=== PATIENT | female | born 1960 | race African-American/Black ===

== ENCOUNTER 2016-07-22 11:05 | Emergency (ER) ==
[2016-07-22 11:15] VITALS: BP 142/83
--- NOTE | 2016-07-22 12:46 | PROVIDER DOCUMENTATION ---
HPI-EENT General - General Source: patient - History of Present Illness-EENT General Onset/Duration: reports: 1 week ago Timing: reports: still present Associated Symptoms: reports: cough, fever <Starr Sr - Last Filed: 07/22/16 14:12> <Abhijit Morales - Last Filed: 07/22/16 14:17> - General Chief Complaint: Return/Recheck Stated Complaint: CONGESTION Time Seen by Provider: 07/22/16 12:35 Allergies/Adverse Reactions: Patient Allergies Allergy/AdvReac Type Severity Reaction Status Date / Time No Known Allergies Allergy Verified 05/12/15 13:03 Home Medications: Home Medication List Medication Instructions Recorded Confirmed Last Taken Type Duloxetine [Cymbalta] 30 mg PO DAILY 12/06/14 05/12/15 04/14/15 09:00 History 30mg Hydrocodone Bit/Acetaminophen 10 mg PO 4XDAY PRN 12/06/14 05/12/15 04/15/15 09: 00 History [Hydrocodon-Acetaminophn 10-325] 10mg Levothyroxine [Synthroid] 112 meq PO DAILY 12/06/14 05/12/15 04/15/15 09:00 History 112meq Lubiprostone [Amitiza] 24 mcg PO DAILY 12/06/14 05/12/15 04/15/15 09:00 History 24mcg Methocarbamol 750 mg PO DAILY 12/06/14 05/12/15 04/15/15 14:00 History 750mg Pregabalin [Lyrica] 100 mg PO DAILY 12/06/14 05/12/15 04/15/15 09:00 History 100mg Fluticasone/Salmet 250/50 INH 1 puff INH RTBID #30 inhaler 04/21/15 05/12/15 Unknown Rx [Advair 250/50 Diskus] Gentamicin 0.3% Oph Drops 1 drop BOTH EYES BID #1 bottle 04/21/15 05/12/15 Unknown Rx Albuterol Sulfate Inhaler 2 puff INH [id number] #1 inhaler 05/12/15 Unknown Rx [Ventolin Hfa] CefDINIR [Omnicef] 300 mg PO BID #20 capsule 05/12/15 Unknown Rx Celecoxib [Celebrex] 200 mg DAILY 05/12/15 05/12/15 Unknown History Prednisone 10 mg PO BID #12 tablet 05/12/15 Unknown Rx Azithromycin [Zithromax Z-Mack] 250 mg PO DIRECTED #1 pkg 06/24/16 Unknown Rx Methylprednisolone [Medrol Dosepak] 4 mg PO DIRECTED #1 package 06/24/16 Unknown Rx Albuterol Sulfate Inhaler 2 puff INH Q6H PRN PRN #1 inhaler 07/22/16 Unknown Rx [Ventolin Hfa] Amoxicillin 875 mg PO BID #20 tablet 07/22/16 Unknown Rx Guaifenesin/Codeine [Robitussin-AC] 10 ml PO Q4H PRN PRN #8 oz 07/22/16 Unknown Rx - History of Present Illness-EENT General Nature of Presenting Problem: 56 yo F presents to the ER with complaint of CHAN, SOB , fever, cough and nasal congestion x1 week. denies CP and N/V/D. (Starr Sr) Review of Systems - Adult - REVIEW OF SYSTEMS - ADULT Constitutional: reports: fever. denies: chills Eyes: reports: no symptoms reported Ears, Nose, Mouth & Throat: denies: ear pain, throat pain Cardiovascular: denies: chest pain, palpitations Respiratory: reports: cough, shortness of breath, wheezing Gastrointestinal: reports: no symptoms reported Genitourinary: reports: no symptoms reported Musculoskeletal: reports: no symptoms reported Integumentary: reports: no symptoms reported Neurological: reports: headache/migraines. denies: dizziness/vertigo Psychiatric: reports: no symptoms reported Endocrine: reports: no symptoms reported Hematologic/Lymphatic: reports: no symptoms reported Allergic/Immunologic: reports: no symptoms reported All Other Systems: Reviewed and Negative <Starr Sr - Last Filed: 07/22/16 14:12> Past History - Adult - PAST MEDICAL HISTORY-ADULT Review of Records: reports: Nursing Assessment Review, Medications Reviewed Major Childhood Illnesses: reports: denies history Cardiovascular: reports: denies history Respiratory: reports: denies history Gastrointestinal: reports: GERD Obstetrical/Gynecological: reports: denies history Genitourinary: reports: denies history Musculoskeletal: reports: denies history Neurological: reports: denies history Psychiatric: reports: depression Endocrine/Immune: reports: thyroid disorder Other Conditions: reports: denies history Additional History: Chronic back pain; Sepsis; Neuropathy - PRIOR SURGERIES/PROCEDURES Surgical/Procedure History: reports: cholecystectomy - PRIOR HOSPITALIZATIONS Prior Hospitalizations: reports: none - IMMUNIZATION STATUS Childhood Immunizations: See Nurse Assessment Flu Vaccine: See Nurse Assessment - FAMILY HISTORY Family History: reviewed, not pertinent <Starr rS - Last Filed: 07/22/16 14:12> Physical Exam- EENT - Physical Exam EENT Initial Vital Signs Reviewed: Yes General Appearance: appears well, alert Eye Exam: bilateral eye: normal inspection, PERRL, EOMI Ear Exam: bilateral ear: auricle normal, canal normal, TM normal Nasal Exam: dried blood (L nare), sinus tenderness Throat Exam: normal mouth inspection Neck: supple, normal inspection Respiratory: no respiratory distress, decreased breath sounds, wheezing Cardiovascular: normal peripheral pulses, regular rate, rhythm Abdominal Exam: non tender, soft Back Exam: no CVA tenderness, no vertebral tenderness Extremity: normal gait, normal inspection Integumentary: normal color, warm/dry Neurologic: grossly normal, no motor/sensory deficits Psych/Mental Status: normal mood/affect, normal thought content, normal thought process, oriented x 3 <Starr Sr - Last Filed: 07/22/16 14:12> Progress - XRAY 1 XRAY Study: Chest Impression: Normal (NAD, possible COPD, per radiologist) 2 XRAY Study: other (sinuses) Impression: Normal (unremarkable single broderick view of the paranasal sinuses, per radiologist) <Starr Sr - Last Filed: 07/22/16 14:12> <Abhijit Morales - Last Filed: 07/22/16 14:17> - PLAN OF CARE/RESULTS Progress/Plan/Lab Results: Vital Signs Temp Pulse Resp BP Pulse Ox 07/22/16 13:30 99 H 22 96 07/22/16 11:12 99.1 F 102 H 20 142/83 95 No Known Allergies Allergy (Verified 05/12/15 13:03) Duloxetine [Cymbalta] 30 mg PO DAILY 12/06/14 Hydrocodone Bit/Acetaminophen [Hydrocodon-Acetaminophn 10-325] 10 mg PO 4XDAY PRN 12/06/14 Levothyroxine [Synthroid] 112 meq PO DAILY 12/06/14 Lubiprostone [Amitiza] 24 mcg PO DAILY 12/06/14 Methocarbamol 750 mg PO DAILY 12/06/14 Pregabalin [Lyrica] 100 mg PO DAILY 12/06/14 Fluticasone/Salmet 250/50 INH [Advair 250/50 Diskus] 1 puff INH RTBID #30 inhaler 04/21/15 Gentamicin 0.3% Oph Drops 1 drop BOTH EYES BID #1 bottle 04/21/15 Albuterol Sulfate Inhaler [Ventolin Hfa] 2 puff INH [id number] #1 inhaler 05/12/15 CefDINIR [Omnicef] 300 mg PO BID #20 capsule 05/12/15 Celecoxib [Celebrex] 200 mg DAILY 05/12/15 Prednisone 10 mg PO BID #12 tablet 05/12/15 Azithromycin [Zithromax Z-Mack] 250 mg PO DIRECTED #1 pkg 06/24/16 Methylprednisolone [Medrol Dosepak] 4 mg PO DIRECTED #1 package 06/24/16 Laboratory 07/22/16 07/22/16 13:16 11:18 Specimen Type ARTERIAL Sample Site R RADIAL pH 7.41 pCO2 48 H pO2 78 HCO3 28.7 H Base Excess 4.9 H Oxyhemoglobin 93.5 L ABG O2 Sat (Calculated) 15.7 ABG O2 Saturation 97.0 ABG Carboxyhemoglobin 1.80 ABG Methemoglobin 1.8 H Chris Test YES A-a O2 Difference 12.0 Total Hemoglobin 11.9 Lactate 1.90 Blood Gas Modality ROOM AIR FiO2 % 21.0 Influenza A (Rapid) NEGATIVE Influenza B (Rapid) NEGATIVE Orders Category Date Time Status CHEST-2 VIEWS [RAD] Stat Exams 07/22/16 11:16 Draft SINUSES BRODERICK VIEW ONLY [RAD] Stat Exams 07/22/16 11:16 Draft ABG [RESP] Routine Lab 07/22/16 13:[address] Stat Lab 07/22/16 11:18 Completed Albuterol 2.5MG/Ipratrop 0.5MG [Duoneb (A & A)] Med 07/22/16 13:09 Discontinued 3 ml INH NOW ONE Aerosol Treatments Stat Oth 07/22/16 13:09 Completed Peak Flow Stat Oth 07/22/16 13:10 Completed (Starr Sr) Departure - Departure Time of Disposition Order: 14:13 Certified Medical Emergency: Emergent <Starr Sr - Last Filed: 07/22/16 14:12> - Departure Time of Disposition Order: 14:17 Certified Medical Emergency: Emergent <Abhijit Morales - Last Filed: 07/22/16 14:17> - Departure DIAGNOSIS: Bleeding nose Asthmatic bronchitis Qualifiers: Asthma severity: unspecified severity Asthma complication type: uncomplicated Qualified Code(s): J45.909 - Unspecified asthma, uncomplicated Disposition: HOME 01 Condition: Stable Prescriptions: Guaifenesin/Codeine [Robitussin-AC] 10 ml PO Q4H PRN PRN #8 oz PRN Reason: Cough Albuterol Sulfate Inhaler [Ventolin Hfa] 2 puff INH Q6H PRN PRN #1 inhaler PRN Reason: sob Amoxicillin 875 mg PO BID #20 tablet Referrals: Venkatesh Chu MD [Primary Care Provider] - Attestation - Scribe Verification/Attestation Scribe:: Starr Sr Acting as Scribe for:: Abhijit Morales Scribe documention review:: This chart was documented by a scribe and accurately reflects the service the provider performed and the decisions made by the provider. <Starr Sr - Last Filed: 07/22/16 14:12> Physician Attestation
--- NOTE | 2016-07-22 12:46 | Diag Imaging Result Document ---
PROCEDURE NAME: SINUSES RODRIGUEZ VIEW ONLY - 07/22/2016 SINGLE RODRIGUEZ VIEW OF THE PARANASAL SINUSES: COMPARISON: None available. FINDINGS: The paranasal sinuses are grossly clear. No definite air-fluid level is identified. The mastoid air cells are clear. The surrounding bony structures are grossly intact. IMPRESSION: Unremarkable single Rodriguez view of the paranasal sinuses.
--- NOTE | 2016-07-22 12:48 | Diag Imaging Result Document ---
PROCEDURE NAME: CHEST-2 VIEWS - 07/22/2016 PA AND LATERAL RADIOGRAPH OF THE CHEST: COMPARISON: 05/12/2015. FINDINGS: The lung apices appear somewhat hyperlucent suggesting possible COPD, stable. The lungs are clear otherwise. There is no definite pleural fluid collection. Cardiac silhouette and central vasculature are grossly unremarkable. IMPRESSION: Possible COPD. No definite acute pathology.
[2016-07-22] MEDS ORDERED: DUONEB (A & A) INH ONE (13:09)
[2016-07-22 13:41] LABS: BE 4.9 mmoll (-3.0-3.0); BLOOD TYPE ARTERIAL; DRAW SITE R RADIAL; METHB 1.8 % (0.0-1.5); O2(CT) 15.7 mL/dL (15.0-23.0); PCO2(98.6) 48 mmHg (35-45); PO2(98.6) 78 mmHg (60-100); SAMPLE BLOOD; THB 11.9 g/dL (11.5-17.4); pH(98.6) 7.41 (7.35-7.45)
[2016-07-22 13:45] LABS: ALLEN TEST YES; MODALITY ROOM AIR
[2016-07-22] MEDS ORDERED: DEPO-MEDROL IM ONE (14:16)
== END 2016-07-22 14:52 | disposition home or self-care (01) ==
LOC: P.ED 11:05
DX: J45.909 Unspecified asthma, uncomplicated (principal); R04.0 Epistaxis; R51 Headache; R06.02 Shortness of breath; R50.9 Fever, unspecified; R05 Cough; R09.81 Nasal congestion; R06.2 Wheezing; E07.9 Disorder of thyroid, unspecified; F32.9 Major depressive disorder, single episode, unspecified; Z79.899 Other long term (current) drug therapy; Z79.52 Long term (current) use of systemic steroids; Z79.51 Long term (current) use of inhaled steroids
CPT/HCPCS: 70210; 71020; 82805; 87804; 94640; 96372; J1030

== ENCOUNTER 2016-07-25 07:45 | Emergency (ER) ==
[2016-07-25 07:54] VITALS: BP 154/96
[2016-07-25 08:18] LABS: URINE SOURCE CLEAN CATCH
[2016-07-25] MEDS ORDERED: ROCEPHIN IM ONE (08:23)
[2016-07-25] MEDS ORDERED: SOLU-MEDROL IM ONE (08:23)
[2016-07-25] MEDS ORDERED: XYLOCAINE-MPF 1% INJ ONE (08:23)
[2016-07-25 08:34] LABS: UR AMPHETAMINES QUAL NONE DETECTED (NONE DETECT); UR BARBITUATES QUAL NONE DETECTED (NONE DETECT); UR BENZODIAZEPIN QUAL NONE DETECTED (NONE DETECT); UR CANNABINOIDS QUAL NONE DETECTED (NONE DETECT); UR COCAINE QUAL NONE DETECTED (NONE DETECT); UR MDMA QUAL NONE DETECTED (NONE DETECT); UR METHADONE QUAL NONE DETECTED (NONE DETECT); UR METHAMPHETAMINE QUAL NONE DETECTED (NONE DETECT); UR OPIATES QUAL PRESUMPTIVE POSITIVE (NONE DETECT); UR OXYCODONE QUAL NONE DETECTED (NONE DETECT); UR PCP QUAL NONE DETECTED (NONE DETECT); UR TCA QUAL NONE DETECTED (NONE DETECT)
[2016-07-25 08:41] LABS: BILIRUBIN URINE NEGATIVE (NEGATIVE); BLOOD URINE NEGATIVE (NEGATIVE); CLARITY CLEAR (CLEAR); COLOR YELLOW; GLUCOSE URINE NEGATIVE (NEGATIVE); LEUKOCYTES URINE 1+ (NEGATIVE); NITRITE URINE NEGATIVE (NEGATIVE); PH URINE 6.5; PROTEIN URINE TRACE mg/dL (NEGATIVE); UROBILINOGEN URINE NORMAL
[2016-07-25 08:45] LABS: URINE CULTURE PL NEEDED? YES; URINE EPITHELIAL CELLS >10 /HPF (<10)
--- NOTE | 2016-07-25 09:29 | PROVIDER DOCUMENTATION ---
HPI-General Adult - General Chief Complaint: UTI Symptoms Stated Complaint: UTI SX Time Seen by Provider: 07/25/16 08:01 Source: patient Allergies/Adverse Reactions: Patient Allergies Allergy/AdvReac Type Severity Reaction Status Date / Time No Known Allergies Allergy Verified 07/25/16 07:53 Home Medications: Home Medication List Medication Instructions Recorded Confirmed Last Taken Type Duloxetine [Cymbalta] 30 mg PO DAILY 12/06/14 05/12/15 04/14/15 09:00 History 30mg Hydrocodone Bit/Acetaminophen 10 mg PO 4XDAY PRN 12/06/14 05/12/15 04/15/15 09: 00 History [Hydrocodon-Acetaminophn 10-325] 10mg Levothyroxine [Synthroid] 112 meq PO DAILY 12/06/14 05/12/15 04/15/15 09:00 History 112meq Lubiprostone [Amitiza] 24 mcg PO DAILY 12/06/14 05/12/15 04/15/15 09:00 History 24mcg Methocarbamol 750 mg PO DAILY 12/06/14 05/12/15 04/15/15 14:00 History 750mg Pregabalin [Lyrica] 100 mg PO DAILY 12/06/14 05/12/15 04/15/15 09:00 History 100mg Fluticasone/Salmet 250/50 INH 1 puff INH RTBID #30 inhaler 04/21/15 05/12/15 Unknown Rx [Advair 250/50 Diskus] Gentamicin 0.3% Oph Drops 1 drop BOTH EYES BID #1 bottle 04/21/15 05/12/15 Unknown Rx Albuterol Sulfate Inhaler 2 puff INH [id number] #1 inhaler 05/12/15 Unknown Rx [Ventolin Hfa] CefDINIR [Omnicef] 300 mg PO BID #20 capsule 05/12/15 Unknown Rx Celecoxib [Celebrex] 200 mg DAILY 05/12/15 05/12/15 Unknown History Prednisone 10 mg PO BID #12 tablet 05/12/15 Unknown Rx Azithromycin [Zithromax Z-Mack] 250 mg PO DIRECTED #1 pkg 06/24/16 Unknown Rx Methylprednisolone [Medrol Dosepak] 4 mg PO DIRECTED #1 package 06/24/16 Unknown Rx Albuterol Sulfate Inhaler 2 puff INH Q6H PRN PRN #1 inhaler 07/22/16 Unknown Rx [Ventolin Hfa] Amoxicillin 875 mg PO BID #20 tablet 07/22/16 Unknown Rx Fluconazole [Diflucan] 150 mg PO DAILY #3 tablet 07/22/16 Unknown Rx Guaifenesin/Codeine [Robitussin-AC] 10 ml PO Q4H PRN PRN #8 oz 07/22/16 Unknown Rx Levofloxacin [Levaquin] 750 mg PO DAILY #7 tablet 07/25/16 Unknown Rx Methylprednisolone [Medrol Dosepak] 4 mg PO DIRECTED #1 package 07/25/16 Unknown Rx - History of Present Illness -Gen Adult Nature of Presenting Problems: Reports UTI symptoms since yesterday, urgency, and painful urinating. Pt was seen here a couple of days ago for nasal congestion and was taking Amoxi, etc. Not improving. Denies CP/SOB/LOC. No h/o DMII and no other concerns. Location of Pain/Injury: reports: face, abdomen. denies: chest Pain Radiation: reports: no radiation Quality of Pain: reports: aching, cramping Severity: reports: mild Onset/Duration: reports: 24 hours ago Timing: reports: still present Context/Activities at Onset: reports: none Modifying Factors: improves with: nothing Associated Symptoms: reports: cough, fatigue, malaise, vomiting. denies: weakness Similar Symptoms Previously?: Yes Recently seen or treated by another doctor?: Yes Review of Systems - Adult - REVIEW OF SYSTEMS - ADULT Constitutional: reports: see HPI, fatique. denies: fever Eyes: reports: no symptoms reported Ears, Nose, Mouth & Throat: reports: no symptoms reported Cardiovascular: reports: no symptoms reported Respiratory: reports: no symptoms reported Gastrointestinal: reports: no symptoms reported Genitourinary: reports: see HPI, dysuria, frequency, hesitency. denies: flank pain, urinary retention Musculoskeletal: reports: no symptoms reported Integumentary: reports: no symptoms reported Neurological: reports: no symptoms reported All Other Systems: Reviewed and Negative Past History - Adult - PAST MEDICAL HISTORY-ADULT Review of Records: reports: Old Records Reviewed, Nursing Assessment Review, Medications Reviewed, Social history reviewed & non-contributory. Major Childhood Illnesses: reports: denies history Cardiovascular: reports: denies history Respiratory: reports: denies history Gastrointestinal: reports: GERD Obstetrical/Gynecological: reports: denies history Genitourinary: reports: denies history Musculoskeletal: reports: denies history Neurological: reports: denies history Psychiatric: reports: depression Endocrine/Immune: reports: thyroid disorder Other Conditions: reports: denies history Additional History: Chronic back pain; Sepsis; Neuropathy - PRIOR SURGERIES/PROCEDURES Surgical/Procedure History: reports: cholecystectomy - PRIOR HOSPITALIZATIONS Prior Hospitalizations: reports: none - IMMUNIZATION STATUS Childhood Immunizations: See Nurse Assessment Flu Vaccine: See Nurse Assessment - FAMILY HISTORY Family History: reviewed, not pertinent Physical Exam-General - PHYSICAL EXAM-ADULT Initial Vital Signs Reviewed: Yes - CONSTITUTIONAL General Appearance: appears well, alert, no apparent distress - EYES Eyes: PERRL/EOMI, pink conjunctivae, fundi clear, no AV nicking - HEAD, EARS, NOSE, MOUTH & THROAT HENMT: normocephalic/atraumatic, moist mucous membranes, normal ENT inspection - NECK Neck: non-tender, full range of motion, supple, normal inspection - RESPIRATORY Respiratory: chest non-tender, lungs clear, normal breath sounds, no pleuratic chest pain - CARDIOVASCULAR Cardiovascular: normal peripheral pulses, regular rate, rhythm, no edema, no gallop - GASTROINTESTINAL (ABDOMEN) Abdominal Exam: normal bowel sounds, soft, no organomegaly, no pulsatile mass, tenderness (Mild suprapubic tendernes, no gaurding and no rebound.). negative: distended, guarding, rigid, rebound - MUSCULOSKELETAL Back Exam: normal inspection, no CVA tenderness, no vertebral tenderness Extremity: normal range of motion, non-tender, normal gait, normal inspection - SKIN Integumentary: normal color, normal turgor, warm/dry - NEUROLOGIC Neurologic: no motor/sensory deficits - PSYCHIATRIC Psych/Mental Status: normal mood/affect, normal thought content, normal thought process, oriented x 3 Departure - Departure Time of Disposition Order: 09:27 DIAGNOSIS: UTI (urinary tract infection) Qualifiers: Urinary tract infection type: site unspecified Hematuria presence: without hematuria Qualified Code(s): N39.0 - Urinary tract infection, site not specified Sinusitis Qualifiers: Sinusitis location: unspecified location Chronicity: unspecified Qualified Code (s): J32.9 - Chronic sinusitis, unspecified Disposition: HOME 01 Certified Medical Emergency: Emergent Condition: Stable Prescriptions: Levofloxacin [Levaquin] 750 mg PO DAILY #7 tablet Methylprednisolone [Medrol Dosepak] 4 mg PO DIRECTED #1 package Referrals: Venkatesh Chu MD [Primary Care Provider] -
== END 2016-07-25 09:47 | disposition home or self-care (01) ==
LOC: P.ED 07:45
DX: N39.0 Urinary tract infection, site not specified (principal); J32.9 Chronic sinusitis, unspecified; R39.15 Urgency of urination; R30.0 Dysuria; R05 Cough; R53.83 Other fatigue; R53.81 Other malaise; R11.10 Vomiting, unspecified; R35.0 Frequency of micturition; E07.9 Disorder of thyroid, unspecified; F32.9 Major depressive disorder, single episode, unspecified; M54.9 Dorsalgia, unspecified; G89.29 Other chronic pain; G62.9 Polyneuropathy, unspecified; Z86.19 Personal history of other infectious and parasitic diseases; R10.30 Lower abdominal pain, unspecified; Z79.899 Other long term (current) drug therapy; Z79.52 Long term (current) use of systemic steroids; Z79.51 Long term (current) use of inhaled steroids
CPT/HCPCS: 80305; 81001; 87088; 96372; J0696; J2930

== ENCOUNTER 2016-10-14 20:24 | Inpatient (IN) ==
[2016-10-14] MEDS ORDERED: TYLENOL ONE (20:52)
[2016-10-14] MEDS ORDERED: TYLENOL PO ONE (20:59)
[2016-10-14 21:00] LABS: BE 8.9 mmoll (-3.0-3.0); BLOOD TYPE ARTERIAL; DRAW SITE R RADIAL; METHB 1.2 % (0.0-1.5); O2(CT) 11.9 mL/dL (15.0-23.0); SAMPLE BLOOD; SAO2 86.5 % (95.0-100.0); THB 10.1 g/dL (11.5-17.4); pH(98.6) 7.41 (7.35-7.45)
[2016-10-14 21:04] LABS: ALLEN TEST YES; MODALITY CANNULA; PCO2(98.6) 55 mmHg (35-45); PO2(98.6) 46 mmHg (60-100)
[2016-10-14 21:24] LABS: MANUAL DIFF NEEDED? NO
[2016-10-14 21:34] LABS: BASO% 0.2 % (0.0-0.8); EOS# 0.06 X1000 (0.0-0.7); EOS% 1.3 % (0.0-10.0); HEMATOCRIT 29.7 % (37.0-47.0); HEMOGLOBIN 9.7 g/dL (12.0-16.0); IMM GRAN# 0.12 X1000 (0.0-0.04); IMM GRAN% 2.5 % (0.0-0.5); LYMPH# 0.65 X1000 (1.2-3.4); LYMPH% 13.5 % (20.5-51.1); MCH 27.5 PG (27-31); MCHC 32.7 g/dL (33-37); MCV 84.1 FL (81-99); MONO# 0.94 X1000 (0.11-0.59); MONO% 19.6 % (1.7-9.3); MPV 9.4 FL (7.4-10.4); NEUT% 62.9 % (42.2-75.2); PLT 321 X1000 (130-400); RBC 3.53 XMIL (4.2-5.4)
[2016-10-14] MEDS ORDERED: DUONEB (A & A) INH ONE (21:44)
[2016-10-14 21:48] LABS: ALBUMIN 2.7 g/dL (3.5-5.0); CALCIUM 8.2 mg/dL (8.8-10.2); MAGNESIUM 1.1 mg/dL (1.5-2.7); POTASSIUM 4.9 mmol/L (3.5-5.1); TOTAL BILIRUBIN 0.2 mg/dL (0.20-1.00); TOTAL PROTEIN 5.9 g/dL (6.3-8.3)
[2016-10-14] MEDS ORDERED: NS 1,000 ML IV SCH (22:00)
[2016-10-14] MEDS ORDERED: ROCEPHIN 1 GM/NS 1 GM/50 ML IVPB IV ONE (22:16)
[2016-10-14] MEDS ORDERED: NS 1,000 ML IV ONE (22:22)
[2016-10-14] MEDS ORDERED: TYLENOL PO PRN (22:22)
--- NOTE | 2016-10-14 22:22 | PROVIDER DOCUMENTATION ---
This chart was entered by Shola Gallegos Scribe, acting as scribe for Deacon Bhakta PA. HPI-Respiratory General - General Chief Complaint: Shortness of Breath Stated Complaint: CONGESTED Time Seen by Provider: 10/14/16 20:43 Source: patient Allergies/Adverse Reactions: Patient Allergies Allergy/AdvReac Type Severity Reaction Status Date / Time No Known Allergies Allergy Verified 07/25/16 07:53 Home Medications: Home Medication List Medication Instructions Recorded Confirmed Last Taken Type Duloxetine [Cymbalta] 30 mg PO DAILY 12/06/14 10/14/16 04/14/15 09:00 History 30mg Hydrocodone Bit/Acetaminophen 10 mg PO 4XDAY PRN 12/06/14 10/14/16 04/15/15 09: 00 History [Hydrocodon-Acetaminophn 10-325] 10mg Levothyroxine [Synthroid] 112 meq PO DAILY 12/06/14 10/14/16 04/15/15 09:00 History 112meq Lubiprostone [Amitiza] 24 mcg PO DAILY 12/06/14 10/14/16 04/15/15 09:00 History 24mcg Methocarbamol 750 mg PO DAILY 12/06/14 10/14/16 04/15/15 14:00 History 750mg Pregabalin [Lyrica] 100 mg PO DAILY 12/06/14 10/14/16 04/15/15 09:00 History 100mg Fluticasone/Salmet 250/50 INH 1 puff INH RTBID #30 inhaler 04/21/15 10/14/16 Unknown Rx [Advair 250/50 Diskus] Albuterol Sulfate Inhaler 2 puff INH Q6H PRN PRN #1 inhaler 07/22/16 10/14/16 Unknown Rx [Ventolin Hfa] Guaifenesin/Codeine [Robitussin-AC] 10 ml PO Q4H PRN PRN #8 oz 07/22/16 Unknown Rx Methylprednisolone [Medrol Dosepak] 4 mg PO DIRECTED #1 package 07/25/1602/20 Unknown Rx - History of Present Illness-Resp Nature of Presenting Problem: 56 yo F presents to the ER with complaint of SOB and fever since this AM. Pt was admitted at [facility] last week for SOB and COPD exacerbation. PT has lung cancer and COPD. Severity in ED: reports: mild Onset/Duration: reports: this morning Timing: reports: still present Associated Symptoms: reports: fever/chills, shortness of breath Review of Systems - Adult - REVIEW OF SYSTEMS - ADULT Constitutional: reports: fever. denies: chills Cardiovascular: denies: chest pain, palpitations Respiratory: reports: shortness of breath. denies: cough All Other Systems: Reviewed and Negative Past History - Adult - PAST MEDICAL HISTORY-ADULT Review of Records: reports: Old Records Reviewed, Nursing Assessment Review, Medications Reviewed Major Childhood Illnesses: reports: denies history Cardiovascular: reports: denies history Respiratory: reports: denies history Gastrointestinal: reports: GERD Obstetrical/Gynecological: reports: denies history Genitourinary: reports: denies history Musculoskeletal: reports: denies history Neurological: reports: denies history Psychiatric: reports: depression Endocrine/Immune: reports: thyroid disorder Other Conditions: reports: denies history Additional History: Chronic back pain; Sepsis; Neuropathy - PRIOR SURGERIES/PROCEDURES Surgical/Procedure History: reports: cholecystectomy - PRIOR HOSPITALIZATIONS Prior Hospitalizations: reports: none - IMMUNIZATION STATUS Childhood Immunizations: See Nurse Assessment Flu Vaccine: See Nurse Assessment - FAMILY HISTORY Family History: reviewed, not pertinent Physical Exam-General - PHYSICAL EXAM-ADULT Initial Vital Signs Reviewed: Yes - CONSTITUTIONAL General Appearance: appears well, alert, no apparent distress - NECK Neck: non-tender, full range of motion, supple - RESPIRATORY Respiratory: chest non-tender, crackles, wheezing - CARDIOVASCULAR Cardiovascular: normal peripheral pulses, tachycardia - GASTROINTESTINAL (ABDOMEN) Abdominal Exam: normal bowel sounds, non tender, soft - SKIN Integumentary: normal color, normal turgor, warm/dry Progress - PLAN OF CARE/RESULTS Progress/Plan/Lab Results: Vital Signs - 8 hr 10/14/16 20:30 10/14/16 21:45 10/14/16 21:50 Temperature 102.1 F H 99.2 F Pulse Rate 118 H 109 H Respiratory Rate 20 Blood Pressure 125/81 O2 Sat by Pulse Oximetry 92 L 97 10/14/16 21:54 Temperature Pulse Rate 102 H Respiratory Rate 16 Blood Pressure O2 Sat by Pulse Oximetry 98 Laboratory Results - last 24 hr 10/14/16 10/14/16 10/14/16 20:40 21:00 21:00 WBC RBC Hgb Hct MCV MCH MCHC RDW Std Deviation Plt Count MPV Immature Gran % (Auto) Neut % (Auto) Lymph % (Auto) Bucks % (Auto) Eos % (Auto) Baso % (Auto) Immature Gran # (Auto) Neut # (Auto) Lymph # (Auto) Bucks # (Auto) Eos # (Auto) Baso # (Auto) Specimen Type ARTERIAL Sample Site R RADIAL pH 7.41 pCO2 55 H* pO2 46 L* HCO3 31.6 H Base Excess 8.9 H Oxyhemoglobin 83.4 L* ABG O2 Sat (Calculated) 11.9 L ABG O2 Saturation 86.5 L ABG Carboxyhemoglobin 2.40 ABG Methemoglobin 1.2 Chris Test YES A-a O2 Difference 85.0 Total Hemoglobin 10.1 L Lactate 0.70 Liter Flow 2.0 Blood Gas Modality CANNULA FiO2 % 28.0 Sodium 140 Potassium 4.9 Chloride 102 Carbon Dioxide 32 Anion Gap 6 BUN 23 H Creatinine 1.6 H Estimated GFR/1.73 m2 33 BUN/Creatinine Ratio 14 Glucose 99 Calculated Osmolality 283 Calcium 8.2 L Magnesium 1.1 L Total Bilirubin 0.20 AST 19 ALT 16 Alkaline Phosphatase 71 Total Protein 5.9 L Albumin 2.7 L Globulin 3.0 Albumin/Globulin Ratio 1.0 Plasma Lactate 0.9 10/14/16 21:00 WBC 4.80 RBC 3.53 L Hgb 9.7 L Hct 29.7 L MCV 84.1 MCH 27.5 MCHC 32.7 L RDW Std Deviation 18.0 H Plt Count 321 MPV 9.4 Immature Gran % (Auto) 2.5 H Neut % (Auto) 62.9 Lymph % (Auto) 13.5 L Bucks % (Auto) 19.6 H Eos % (Auto) 1.3 Baso % (Auto) 0.2 Immature Gran # (Auto) 0.12 H Neut # (Auto) 3.02 Lymph # (Auto) 0.65 L Bucks # (Auto) 0.94 H Eos # (Auto) 0.06 Baso # (Auto) 0.01 Specimen Type Sample Site pH pCO2 pO2 HCO3 Base Excess Oxyhemoglobin ABG O2 Sat (Calculated) ABG O2 Saturation ABG Carboxyhemoglobin ABG Methemoglobin Chris Test A-a O2 Difference Total Hemoglobin Lactate Liter Flow Blood Gas Modality FiO2 % Sodium Potassium Chloride Carbon Dioxide Anion Gap BUN Creatinine Estimated GFR/1.73 m2 BUN/Creatinine Ratio Glucose Calculated Osmolality Calcium Magnesium Total Bilirubin AST ALT Alkaline Phosphatase Total Protein Albumin Globulin Albumin/Globulin Ratio Plasma Lactate Orders Category Date Time Status Saline Loc NOW Care 10/14/16 20:46 Active CHEST-2 VIEWS [RAD] Stat Exams 10/14/16 20:44 Taken ABG [RESP] Routine Lab 10/14/16 20:40 Completed BLOOD CULTURE [BLDCUL] Stat Lab 10/14/16 20:45 Ordered CBC WITH ELECTRONIC DIFF [HEME] Stat Lab 10/14/16 21:00 Completed COMPREHENSIVE METABOLIC PANEL [CHEM] Stat Lab 10/14/16 21:00 Completed LACTATE, PLASMA [CHEM] Stat Lab 10/14/16 21:00 Completed MAGNESIUM [CHEM] Stat Lab 10/14/16 21:00 Completed 0.9% Sodium Chloride Inj [Ns] 1,000 ml Med 10/14/16 22:00 Active IV 75 mls/hr Acetaminophen [Tylenol] Med 10/14/16 20:52 Discontinued 1,000 mg .ROUTE .STK-MED ONE Acetaminophen [Tylenol] Med 10/14/16 20:59 Discontinued 1,000 mg PO NOW ONE Albuterol 2.5MG/Ipratrop 0.5MG [Duoneb (A & A)] Med 10/14/16 21:44 Discontinued 3 ml INH NOW ONE Rocephin 1 gm/Ns IV Now Med 10/14/16 22:16 Ordered CefTRIAXONE 1 GM/NS [Rocephin 1 gm/Ns] 1 gm in 50 ml IV NOW Aerosol Treatments Routine Oth 10/14/16 21:45 Completed Aerosol Treatments Stat Oth 10/14/16 21:45 Completed O2 Per Protocol Stat Oth 10/14/16 21:31 Completed Will admit for bronchitis vs occult pneumonia and hypoxemia. Result Diagrams: 10/14/16 21:00 10/14/16 21:00 - CONSULTS/PCP/HOSPITALIST Notification #1 *Consult/PCP/Hospitalist*: Dr. Chin Time Discussed: 22:21 Consult Disposition: Admit Departure - Departure Date of Disposition Decision: 10/14/16 Time of Disposition Decision: 22:21 DIAGNOSIS: COPD with exacerbation, Hypoxemia, Bronchitis Fever Qualifiers: Fever type: unspecified Qualified Code(s): R50.9 - Fever, unspecified Disposition: ADMITTED INPATIENT 09 Certified Medical Emergency: Emergent Condition: Stable Referrals and Follow-Ups: Venkatesh Chu MD [Primary Care Provider] - - Critical Care Note This patient required my direct & personal management of CC.: No Attestation - Physician/ DALE Attestation Patient care was provided by Advanced Practice Provider:: Yes Advanced Practice Provider:: Deacon Bhakta Advanced Practice Provider documentation review:: The Mid-level provider documentation, treatment plan and medical decision making was reviewed by the physician who agrees with all treatment and medical decision making by the MLP. This chart was documented by the indicated scribe, (Shola Gallegos Scribe) and accurately reflects the services I performed and decisions made by me, Deacon Bhakta PA, as attested by the provider's signature.
[2016-10-14] MEDS: DUONEB (A & A) INH SCH (23:00)
--- NOTE | 2016-10-14 23:01 | Diag Imaging Result Doc PS360 ---
EXAM: CHEST-2 VIEWS HISTORY: cough, fever, SOB TECHNIQUE: COMPARISON: 09/05/2016 FINDINGS: The lungs are well expanded. The heart is not enlarged. The vessels are not distended. There are no infiltrates. No pleural effusions. There is a right-sided portacatheter. No pneumothorax. The tip overlies the upper and mid superior vena cava. Emphysema this changes are present. No change in the left apical pleural thickening. IMPRESSION: No pneumonia Electronically signed by Cristopher Shoemaker 10/14/2016 10:59 PM
[2016-10-15] MEDS: DUONEB (A & A) INH SCH ×6 (03:57→22:56)
[2016-10-15] MEDS ORDERED: DUONEB (A & A) INH PRN (08:34)
[2016-10-15] MEDS ORDERED: MAGNESIUM SULFATE 4 GM/S.W.I. 4 GM/100 ML IVPB IV ONE (09:00)
[2016-10-15] MEDS ORDERED: SYNTHROID PO SCH (09:00)
--- NOTE | 2016-10-15 09:00 | HISTORY AND PHYSICAL ---
PRIMARY CARE PHYSICIAN: Dr. Venkatesh Chu. ONCOLOGIST: Dr. Degroot in [place]. CHIEF COMPLAINT: Increased shortness of breath and a subjective fever. HISTORY OF PRESENTING ILLNESS: This is a 56-year-old, -Burm[place] female who presents to [facility] ER with complaints of increased shortness of breath and a subjective fever that has progressively worsened over the last couple of days. She states that she was in [facility] last week with a COPD exacerbation. She is currently being treated for lung cancer. Workup in the ER showed an ABG with a pH of 7.41, a pCO2 of 55 , and a PO2 of 46. Bicarb was 31.6. Her BUN was 23 and creatinine of 1.6 which is above her baseline that is usually around 0.7. Her chest x-ray showed no pneumonia. She has wheezing throughout her entire lung johnson. Her temperature on arrival was 102.1 with a pulse of 118. She was saturating 92% on room air. Placed on 2 L via nasal cannula. Came up to 97-100% so she was admitted to the medical unit for further evaluation and treatment. PAST MEDICAL HISTORY: Lung cancer with current ongoing treatments, COPD, GERD, and hypothyroidism. PAST SURGICAL HISTORY: Cholecystectomy. FAMILY HISTORY: Noncontributory. SOCIAL HISTORY: She currently lives with family. Denies any tobacco use, stating that she quit 4 years ago. Denies any alcohol or illicit drug use. ALLERGIES: She has no known drug allergies. HOME MEDICATIONS: She takes a Ventolin inhaler 2 puffs q.6 hours p.r.n. We will hold that. Cymbalta 30 mg p.o. daily, Advair 250/50 Diskus 1 inhalation b.i.d., Robitussin AC 10 mL p.o. q.4 hours p.r.n., [place] 10 p.o. 4 times daily p.r.n., Synthroid 112 mcg p.o. daily, Amitiza 24 mcg p.o. daily, methocarbamol 750 mg p.o. daily, a Medrol Dosepak as directed will be held, and Lyrica 100 mg p.o. daily. LABORATORY DATA: Showed a white blood cell count of 4.8, a hemoglobin of 9.7, hematocrit 29.7, platelets 321,000. ABG with a pH of 7.41, pCO2 of 55, PO2 46, bicarb of 31.6. Sodium 140, potassium 4.9, chloride 102, CO2 32, BUN of 23, with a creatinine of 1.6, glucose 99, magnesium of 1.1, plasma lactate is 0.9. Chest x-ray showed no pneumonia. REVIEW OF SYSTEMS: She was positive for subjective fever, chills, cough, shortness of breath. She denied any chest pain, abdominal pain, constipation, diarrhea, or burning or hurting with urination. PHYSICAL EXAMINATION: VITAL SIGNS: On arrival showed a temperature of 102.1 degrees, a pulse of 118, respirations 20, blood pressure 125/81, and was saturating 92% on room air. Vitals currently show a temperature of 98.8 degrees, pulse 97, respirations 18, blood pressure 138/78, and she is saturating 100% on 2 L via nasal cannula. GENERAL: This is a 56-year-old, female lying in the bed, and answers questions appropriately. HEENT: Normocephalic and atraumatic. Pupils are equal, round, and reactive to light. The extraocular movements are intact. Oropharynx and nares are clear. NECK: Supple. LUNGS: With wheezing throughout entire posterior lung johnson. Equal lung expansion and chest wall movement. O2 via nasal cannula currently in use. HEART: With regular rate and rhythm. No murmurs, rubs, or gallops. ABDOMEN: Soft, nontender, nondistended. Bowel sounds are present x4 quadrants. EXTREMITIES: No clubbing, cyanosis, or edema. NEUROLOGICAL: The cranial nerves 2-12 are grossly intact. ASSESSMENT: 1. An acute chronic obstructive pulmonary disease exacerbation. 2. Acute kidney injury. 3. Hypomagnesemia. 4. Lung cancer with treatments ongoing. 5. Hypothyroidism. 6. Gastroesophageal reflux disease. PLAN: She is being admitted to the medical unit at [facility]. Placed on telemetry, O2 per protocol. Healthy heart diet. We are obtaining blood cultures x2 that are currently pending. She is on normal saline at 50 mL an hour, Rocephin 1 gram IV q.24, DuoNebs q.4 hours routinely and q.2 p.r.n. We will continue her home medications. Place her on Solu-Medrol 80 mg IV q.8 and recheck a CBC and a BMP in the a.m. Magnesium Sulfate 4gm IV today. Recheck mag level in am. Dictated by DICK Galvin for Yung Chin MD cc: DICK Galvin MD Akram Haggag, MD MTDD
[2016-10-15] MEDS: ROCEPHIN 1 GM/NS 1 GM/50 ML IVPB IV SCH (09:52)
[2016-10-15] MEDS: SOLU-MEDROL IV SCH ×2 (09:53→15:45)
[2016-10-15] MEDS: CYMBALTA PO SCH (09:54)
[2016-10-15] MEDS: AMITIZA PO SCH (09:54)
[2016-10-15] MEDS: ROBAXIN PO SCH (09:54)
[2016-10-15] MEDS: LYRICA PO SCH (09:54)
[2016-10-15] MEDS: NORCO-10 PO PRN (10:00)
[2016-10-15] MEDS: ROBITUSSIN-AC PO PRN ×2 (15:44→21:44)
[2016-10-15] MEDS: ADVAIR 250/50 DISKUS INH SCH (19:59)
[2016-10-16] MEDS: SOLU-MEDROL IV SCH ×4 (00:01→23:15)
[2016-10-16] MEDS: DUONEB (A & A) INH SCH ×6 (03:39→23:28)
[2016-10-16] MEDS: SYNTHROID PO SCH (06:23)
[2016-10-16 06:35] LABS: HEMATOCRIT 27.9 % (37.0-47.0); HEMOGLOBIN 9.1 g/dL (12.0-16.0); IMM GRAN# 0.08 X1000 (0.0-0.04); IMM GRAN% 1.5 % (0.0-0.5); LYMPH# 0.35 X1000 (1.2-3.4); LYMPH% 6.6 % (20.5-51.1); MANUAL DIFF NEEDED? YES; MCH 26.9 PG (27-31); MCHC 32.6 g/dL (33-37); MCV 82.5 FL (81-99); MONO# 0.22 X1000 (0.11-0.59); MONO% 4.2 % (1.7-9.3); MPV 9.5 FL (7.4-10.4); NEUT% 87.7 % (42.2-75.2); PLT 287 X1000 (130-400); RBC 3.38 XMIL (4.2-5.4)
[2016-10-16] MEDS ORDERED: COMPAZINE PO PRN (06:46)
[2016-10-16] MEDS ORDERED: ZOFRAN ODT PO PRN (06:46)
[2016-10-16] MEDS ORDERED: ROBAXIN PO PRN (06:46)
[2016-10-16] MEDS ORDERED: AMITIZA PO PRN (06:46)
[2016-10-16 06:54] LABS: CALCIUM 7.9 mg/dL (8.8-10.2); MAGNESIUM 1.8 mg/dL (1.5-2.7); POTASSIUM 4.5 mmol/L (3.5-5.1)
[2016-10-16] MEDS ORDERED: SYNTHROID PO SCH (07:00)
[2016-10-16] MEDS: ADVAIR 250/50 DISKUS INH SCH ×2 (08:03→20:26)
--- NOTE | 2016-10-16 08:37 | PROGRESS NOTE ---
DATE: 10/16/2016 SUBJECTIVE: The patient notes that she may be breathing a little bit easier this morning. Denies any chest pain, palpitations. Denies any fevers or chills. Denies any cough or congestion. PHYSICAL: Vital Signs: Temperature 98, pulse 100, respiratory rate 18, BP 120/60, saturation 96% on 2 L. General: Patient is awake, alert. She is currently in mild respiratory distress. Pleasant to talk with. Neck: Supple. CV: Regular rate. Chest: Decreased breath sounds bilaterally but equal. Abdomen: Soft. Extremities: Moves all extremities. Neurologic: No changes. ASSESSMENT: 1. Acute chronic obstructive pulmonary disease exacerbation. 2. Acute hypoxic respiratory failure. 3. Acute hypercapnic respiratory failure. 4. Acute on chronic renal failure. Serum creatinine 1.6 on admit. Currently back down to 1.2. 5. Diabetes with hyperglycemia, stable. 6. Lung cancer with current ongoing treatments. 7. Hypothyroidism. 8. Chronic reflux. 9. Moderate protein calorie malnutrition. 10. Hypomagnesemia, resolved. PLAN: We will continue patient on her breathing treatments, oxygen, antibiotics. Continue her home medications. We will not change her Solu-Medrol this morning, but will continue to follow. cc: Yung Chin MD
[2016-10-16 08:44] LABS: LYMPHS 11 % (21-51); MONO 5 % (1-9)
[2016-10-16] MEDS ORDERED: CYMBALTA PO SCH (09:00)
[2016-10-16] MEDS: ROCEPHIN 1 GM/NS 1 GM/50 ML IVPB IV SCH (09:50)
[2016-10-16] MEDS: LYRICA PO SCH (09:58)
[2016-10-16] MEDS: CORDARONE PO SCH ×2 (09:58→22:34)
[2016-10-16] MEDS: CYMBALTA PO SCH (09:59)
[2016-10-16] MEDS: AMITIZA PO SCH (09:59)
[2016-10-16] MEDS: FOLIC ACID PO SCH (09:59)
[2016-10-16] MEDS: SODIUM BICARBONATE PO SCH ×3 (09:59→22:34)
[2016-10-16] MEDS: ROBAXIN PO SCH (10:03)
[2016-10-16] MEDS: ELIQUIS PO SCH ×2 (11:27→22:35)
[2016-10-16] MEDS: NORCO-10 PO PRN (14:04)
[2016-10-16] MEDS ORDERED: DIFLUCAN PO ONE (22:06)
[2016-10-16] MEDS: ROBITUSSIN-AC PO PRN (23:21)
[2016-10-17] MEDS: DUONEB (A & A) INH SCH ×6 (04:22→23:22)
[2016-10-17] MEDS: NORCO-10 PO PRN ×3 (04:46→20:52)
[2016-10-17 05:56] LABS: HEMATOCRIT 28.9 % (37.0-47.0); HEMOGLOBIN 9.4 g/dL (12.0-16.0); MCH 27.1 PG (27-31); MCHC 32.5 g/dL (33-37); MCV 83.3 FL (81-99); MPV 9.6 FL (7.4-10.4); RBC 3.47 XMIL (4.2-5.4)
[2016-10-17 06:09] LABS: ALBUMIN 2.8 g/dL (3.5-5.0); CALCIUM 8.2 mg/dL (8.8-10.2); POTASSIUM 4.8 mmol/L (3.5-5.1); TOTAL BILIRUBIN 0.2 mg/dL (0.20-1.00); TOTAL PROTEIN 6.2 g/dL (6.3-8.3)
[2016-10-17] MEDS: SYNTHROID PO SCH (06:19)
[2016-10-17] MEDS: ADVAIR 250/50 DISKUS INH SCH ×2 (07:30→19:44)
--- NOTE | 2016-10-17 08:27 | PROGRESS NOTE ---
DATE: 10/17/2016 SUBJECTIVE: The patient notes that she is starting to feel a little bit better. Still is not breathing back to her baseline, but overall her symptoms are starting to improve. OBJECTIVE: Vital Signs: On physical, temp 98, pulse 98, respiratory rate 18, BP 163/80, satting 98% on 2 L. General: Patient is awake, alert. She is currently in mild respiratory distress with mild wheezing. Abdomen: Soft, nondistended. CV: Regular rate. Chest: Decreased breath sounds, but equal bilaterally, improved from yesterday's exam. Still wheezing. LABS: CBC essentially normal. CMP with a creatinine improved at 1.2. ASSESSMENT: 1. Acute on chronic renal failure. 2. Moderate protein calorie malnutrition. 3. Anemia of chronic disease. 4. Chronic obstructive pulmonary disease with moderate exacerbation. 5. Hypomagnesemia, resolved. 6. Lung cancer, currently ongoing treatments. 7. Hypothyroidism. 8. Chronic reflux. PLAN: We will continue to wean her steroids. Continue to follow. Recheck labs in the a.m. Hopefully home in 1-2 days. cc: Yung Chin MD
[2016-10-17] MEDS: SOLU-MEDROL IV SCH ×2 (08:42→15:39)
[2016-10-17] MEDS: ROCEPHIN 1 GM/NS 1 GM/50 ML IVPB IV SCH (08:42)
[2016-10-17] MEDS: LYRICA PO SCH (08:42)
[2016-10-17] MEDS: AMITIZA PO SCH (08:42)
[2016-10-17] MEDS: SODIUM BICARBONATE PO SCH ×3 (08:43→20:46)
[2016-10-17] MEDS: CYMBALTA PO SCH (08:43)
[2016-10-17] MEDS: FOLIC ACID PO SCH (08:43)
[2016-10-17] MEDS: DIFLUCAN PO SCH (08:43)
[2016-10-17] MEDS: ELIQUIS PO SCH ×2 (08:43→20:46)
[2016-10-17] MEDS: CORDARONE PO SCH ×2 (08:43→20:46)
[2016-10-17] MEDS: ZOFRAN IV PRN (08:49)
[2016-10-17] MEDS: ROBITUSSIN-AC PO PRN ×2 (17:49→20:52)
[2016-10-17] MEDS: MYCELEX TROCHE PO SCH ×2 (17:49→20:46)
[2016-10-18] MEDS: SOLU-MEDROL IV SCH ×2 (00:17→08:17)
[2016-10-18] MEDS: DUONEB (A & A) INH SCH ×3 (03:54→12:24)
[2016-10-18] MEDS: ZOFRAN IV PRN (04:26)
[2016-10-18] MEDS: SYNTHROID PO SCH (06:07)
[2016-10-18 06:52] LABS: HEMOGLOBIN 9.8 g/dL (12.0-16.0); MCH 27.2 PG (27-31); MCHC 32.7 g/dL (33-37); MCV 83.3 FL (81-99); MPV 9.6 FL (7.4-10.4); RBC 3.6 XMIL (4.2-5.4)
[2016-10-18 07:19] LABS: CALCIUM 8.6 mg/dL (8.8-10.2); MAGNESIUM 1.7 mg/dL (1.5-2.7); TOTAL BILIRUBIN 0.2 mg/dL (0.20-1.00); TOTAL PROTEIN 5.9 g/dL (6.3-8.3)
[2016-10-18] MEDS: CYMBALTA PO SCH (08:16)
[2016-10-18] MEDS: LYRICA PO SCH (08:16)
[2016-10-18] MEDS: FOLIC ACID PO SCH (08:16)
[2016-10-18] MEDS: SODIUM BICARBONATE PO SCH ×2 (08:17→15:09)
[2016-10-18] MEDS: CORDARONE PO SCH (08:17)
[2016-10-18] MEDS: AMITIZA PO SCH (08:17)
[2016-10-18] MEDS: NORCO-10 PO PRN (08:17)
[2016-10-18] MEDS: ELIQUIS PO SCH (08:17)
[2016-10-18] MEDS: ROCEPHIN 1 GM/NS 1 GM/50 ML IVPB IV SCH (08:17)
[2016-10-18] MEDS: DIFLUCAN PO SCH (08:18)
[2016-10-18] MEDS: ADVAIR 250/50 DISKUS INH SCH (08:53)
[2016-10-18] MEDS ORDERED: SOLU-MEDROL IV ONE (12:00)
[2016-10-18] MEDS: MYCELEX TROCHE PO SCH ×3 (12:11→15:09)
--- NOTE | 2016-10-18 13:35 | DISCHARGE SUMMARY ---
ADMISSION DATE: 10/14/2016 DISCHARGE DATE: 10/18/2016 DIAGNOSES: 1. Acute on chronic renal failure resolved. 2. Chronic obstructive pulmonary disease exacerbation. 3. Hypomagnesemia resolved. 4. Hypothyroidism. 5. Lung cancer currently undergoing treatment. 6. Moderate protein calorie malnutrition. 7. Anemia of chronic disease. 8. Chronic reflux. 9. Oral candidiasis. DIAGNOSTICS: 10/14/2016 chest x-ray revealed no pneumonia. Lungs are well expanded. Heart is not enlarged. Vessels are not distended. There are no infiltrates and no pleural effusions. There is a right-sided Port-A-Cath with no pneumothorax. MICROBIOLOGY: Blood cultures revealed no growth after 48 hours. HOSPITAL COURSE: Ms. Reina presented to the emergency room complaining of increasing shortness of breath and fever. She was found to be in acute COPD exacerbation as well as acute kidney injury. She was admitted, placed on telemetry. She was given supplemental oxygen with gentle hydration, antibiotic coverage of Rocephin with DuoNeb q.4 with q.2 p.r.n. Steroids to taper. We did follow electrolytes and replete as appropriate. She has developed oral candidiasis for which she has been given Diflucan p.o. and Mycelex troches 5 times a day. Thankfully she has improved and is ready for discharge. DISCHARGE PHYSICAL EXAMINATION: Cardiovascular: Regular rate and rhythm. S1 and S2 appreciated. Pulmonary: Breath sounds: She does have some scattered wheezes with no increased work of breathing noted. Chest does rise and fall symmetrically with respiration. Gastrointestinal: Abdomen is soft, nontender, nondistended with bowel sounds in all 4 quadrants. Extremities: No clubbing, cyanosis, or edema. Calves are nontender with pulses palpable x4. DISCHARGE MEDICATIONS: 1. Levothyroxine 100 mcg daily. 2. Folic acid 1 mg daily. 3. Sodium bicarb 650 p.o. at 9, 3 and 9. 4. Cymbalta 30 mg daily. 5. Methocarbamol 750 b.i.d. p.r.n. 6. Amitiza 24 mcg daily p.r.n. 7. Cordarone 200 mg p.o. b.i.d. 8. ProAir inhaler 1 g q.4-6 hours p.r.n. 9. Eliquis 5 mg p.o. b.i.d. 10. Compazine 10 mg p.o. q.4-6 hours p.r.n. 11. Lyrica 100 mg p.o. b.i.d. 12. Zofran 8 mg p.o. t.i.d. p.r.n. 13. [place] 10/325 one 4 times a day as needed. 14. Medrol Dosepak. 15. Mycelex troches 5 times a day. 16. Omnicef 300 mg p.o. q.12 hours for five days. DISCHARGE ACTIVITY: As tolerated. DISCHARGE DIET: Regular. FOLLOWUP: 1. She is to follow up with her primary care physician in the next 1-2 weeks. 2. She is to follow up with her radiation doctor as previously scheduled. She is being discharged home in stable condition with family members. TIME SPENT: This is a greater than 30 minute discharge from 12:30 to 1:03. Dictated by DICK De La Cruz for Yung Chin MD cc: DICK De La Cruz MD
[2016-10-18 15:44] VITALS: BP 152/80
== END 2016-10-18 17:05 | disposition home or self-care (01) ==
LOC: P.ED 20:24 → P.MEDSURG 23:13
PROVIDERS: ATTEND Family Medicine

== ENCOUNTER 2017-02-03 19:25 | Inpatient (IN) ==
[2017-02-03] MEDS ORDERED: PHENERGAN IV ONE (19:55)
[2017-02-03] MEDS ORDERED: DUONEB (A & A) INH ONE (19:55)
[2017-02-03] MEDS ORDERED: SODIUM CHLORIDE 0.9% INJ ONE ×3 (19:55→22:17)
[2017-02-03] MEDS ORDERED: NS 1,000 ML IV ONE ×2 (19:56→22:18)
[2017-02-03 20:38] LABS: BASO% 0.1 % (0.0-0.8); EOS# 0.01 X1000 (0.0-0.7); EOS% 0.1 % (0.0-10.0); HEMATOCRIT 32.3 % (37.0-47.0); LYMPH# 0.21 X1000 (1.2-3.4); LYMPH% 2.1 % (20.5-51.1); MANUAL DIFF NEEDED? YES; MCH 31.4 PG (27-31); MCHC 34.1 g/dL (33-37); MCV 92.3 FL (81-99); MONO# 0.05 X1000 (0.11-0.59); MONO% 0.5 % (1.7-9.3); MPV 10.8 FL (7.4-10.4); NEUT% 96.2 % (42.2-75.2); PLT 230 X1000 (130-400)
[2017-02-03 20:43] LABS: ALBUMIN 3.5 g/dL (3.5-5.0); POTASSIUM 4.1 mmol/L (3.5-5.1); TOTAL BILIRUBIN 0.8 mg/dL (0.20-1.00); TOTAL PROTEIN 7.5 g/dL (6.3-8.3)
--- NOTE | 2017-02-03 20:48 | EKG Report ---
Test Performed on : 02/03/2017 8:16:27 PM Test Reason : chest pain Blood Pressure : / mmHG Vent. Rate : 141 BPM Atrial Rate : 141 BPM P-R Int : 128 ms QRS Dur : 080 ms QT Int : 340 ms P-R-T Axes : 092 -24 088 degrees QTc Int : 520 ms Sinus tachycardia. Septal infarct , age undetermined ST \T\ T wave abnormality, consider inferolateral ischemia Abnormal ECG No previous ECGs available Unconfirmed Result
[2017-02-03] MEDS ORDERED: ASPIRIN PO ONE (21:09)
[2017-02-03] MEDS ORDERED: PROTONIX IV ONE (21:10)
[2017-02-03 21:15] LABS: LYMPHS 3 % (21-51)
--- NOTE | 2017-02-03 21:29 | Diag Imaging Result Doc PS360 ---
EXAM: CHEST-1 VIEW INDICATION: copd TECHNIQUE: 2 views COMPARISON: 10/14/2016 FINDINGS: The right chest port is in stable position. There is vague infiltrate in the left midlung zone and left lower lung zone. There is no discrete pleural fluid collection or pneumothorax. The cardiomediastinal silhouette and central vasculature are grossly unremarkable. IMPRESSION: Vague infiltrate in the left mid and lower lung zone. Developing pneumonia cannot be excluded. Electronically signed by Gopal Harman 02/03/2017 9:27 PM
[2017-02-04] MEDS ORDERED: MORPHINE IV PRN (00:21)
[2017-02-04] MEDS: CIPRO 400 MG/D5W 400 MG/200 ML IVPB IV SCH ×2 (00:33→13:56)
[2017-02-04] MEDS ORDERED: DUONEB (A & A) INH PRN (00:50)
[2017-02-04] MEDS: PHENERGAN IV PRN ×3 (01:58→12:16)
[2017-02-04] MEDS: FLAGYL 500 MG/NS 500 MG/100 ML IVPB IV SCH ×3 (02:06→17:43)
[2017-02-04] MEDS: DUONEB (A & A) INH SCH ×5 (03:54→21:01)
--- NOTE | 2017-02-04 06:35 | EKG Report ---
Test Performed on : 02/04/2017 06:27:42 AM Test Reason : r/o nstemi Blood Pressure : / mmHG Vent. Rate : 117 BPM Atrial Rate : 117 BPM P-R Int : 138 ms QRS Dur : 084 ms QT Int : 288 ms P-R-T Axes : 080 -10 027 degrees QTc Int : 401 ms Sinus tachycardia. with occasional premature ventricular complexes. Possible Left atrial enlargement Septal infarct (cited on or before 03-FEB-2017) Abnormal ECG When compared with ECG of 03-FEB-2017 20:16, (Unconfirmed) premature ventricular complexes. are now present Nonspecific T wave abnormality has replaced inverted T waves in Inferior leads Confirmed by Abhijit Morales MD ([id number]) on 02/04/2017 1:00:35 PM
[2017-02-04] MEDS ORDERED: DILAUDID ONE (09:46)
[2017-02-04] MEDS: PROTONIX IV SCH (09:47)
[2017-02-04] MEDS ORDERED: ROBAXIN PO PRN (12:50)
[2017-02-04] MEDS ORDERED: ZOFRAN ODT PO PRN (12:50)
[2017-02-04] MEDS ORDERED: AMITIZA PO PRN (12:50)
[2017-02-04] MEDS ORDERED: VENTOLIN HFA INH PRN (12:50)
[2017-02-04] MEDS ORDERED: COMPAZINE PO PRN (12:50)
[2017-02-04] MEDS: DILAUDID IV PRN (13:52)
[2017-02-04] MEDS: ELIQUIS PO SCH ×2 (14:05→21:04)
[2017-02-04] MEDS: CORDARONE PO SCH ×2 (14:05→21:04)
[2017-02-04] MEDS: MYCELEX TROCHE PO SCH ×3 (14:05→21:05)
[2017-02-04] MEDS: FOLIC ACID PO SCH (14:05)
[2017-02-04] MEDS: CYMBALTA PO SCH (14:05)
[2017-02-04] MEDS: SODIUM BICARBONATE PO SCH ×2 (14:05→21:04)
[2017-02-04] MEDS: LYRICA PO SCH ×2 (14:13→21:04)
[2017-02-04 15:35] LABS: URINE SOURCE CLEAN CATCH
[2017-02-04 15:42] LABS: BILIRUBIN URINE NEGATIVE (NEGATIVE); BLOOD URINE NEGATIVE (NEGATIVE); CLARITY CLEAR (CLEAR); COLOR YELLOW; GLUCOSE URINE NEGATIVE (NEGATIVE); LEUKOCYTES URINE NEGATIVE (NEGATIVE); NITRITE URINE NEGATIVE (NEGATIVE); PROTEIN URINE TRACE mg/dL (NEGATIVE); URINE MICROSCOPIC NEEDED? YES; UROBILINOGEN URINE NORMAL
[2017-02-04 15:56] LABS: URINE EPITHELIAL CELLS <10 /HPF (<10); URINE RBC <10 /HPF (<10); URINE WBC <10 /HPF (<10)
--- NOTE | 2017-02-04 17:53 | HISTORY AND PHYSICAL ---
ADDENDUM: Briefly this is a pleasant female who was admitted for nausea, vomiting for about 24 hours prior to evaluation. She has lung cancer and she is getting current chemotherapy treatments . Her last treatment was last week and she developed the nausea, vomiting, diarrhea for last couple days. Workup in the ER revealed no white count. Hemoglobin and hematocrit was actually stable. She was a little hyponatremic and had some mild renal insufficiency. We will continue IV fluids, check stool studies and monitor closely. She has empirically been placed on Cipro and Flagyl which we will continue for the time being pending the rest of her workup. cc: Richard Garcia MD
--- NOTE | 2017-02-04 18:44 | Diag Imaging Result Doc PS360 ---
EXAM: ABDOMEN FLAT/UPRIGHT INDICATION: pain TECHNIQUE: 4 views COMPARISON: None. FINDINGS: There is evidence of prior cholecystectomy. There are unremarkable bowel gas and stool patterns. There is no obstructive bowel pattern. There is no evidence of large volume free abdominal gas. There is no evidence of organomegaly. There are degenerative changes involving the hips and the lumbar spine. IMPRESSION: No evidence of acute pathology by plain radiograph. Electronically signed by Gopal Harman 02/04/2017 6:42 PM
[2017-02-04] MEDS: AMBIEN PO SCH (21:05)
[2017-02-05] MEDS: CIPRO 400 MG/D5W 400 MG/200 ML IVPB IV SCH (01:24)
[2017-02-05] MEDS: FLAGYL 500 MG/NS 500 MG/100 ML IVPB IV SCH (01:25)
[2017-02-05] MEDS: DUONEB (A & A) INH SCH ×4 (03:35→21:38)
[2017-02-05 06:00] LABS: EOS# 0.05 X1000 (0.0-0.7); EOS% 2.5 % (0.0-10.0); HEMATOCRIT 25.6 % (37.0-47.0); HEMOGLOBIN 8.5 g/dL (12.0-16.0); IMM GRAN# 0.19 X1000 (0.0-0.04); IMM GRAN% 9.5 % (0.0-0.5); LYMPH# 0.08 X1000 (1.2-3.4); MANUAL DIFF NEEDED? YES; MCH 30.8 PG (27-31); MCHC 33.2 g/dL (33-37); MCV 92.8 FL (81-99); MONO# 0.03 X1000 (0.11-0.59); MONO% 1.5 % (1.7-9.3); MPV 11.2 FL (7.4-10.4); NEUT% 82.5 % (42.2-75.2); PLT 118 X1000 (130-400); RBC 2.76 XMIL (4.2-5.4)
[2017-02-05 06:07] LABS: CALCIUM 8.7 mg/dL (8.8-10.2); POTASSIUM 4.2 mmol/L (3.5-5.1)
[2017-02-05] MEDS: SYNTHROID PO SCH (06:08)
[2017-02-05] MEDS: ZOFRAN IV PRN ×2 (06:11→21:32)
[2017-02-05 07:16] LABS: LYMPHS 4 % (21-51)
[2017-02-05 07:17] LABS: EOS 2 % (1-10); MONO 2 % (1-9)
[2017-02-05] MEDS ORDERED: CIPRO 400 MG/D5W 400 MG/200 ML IVPB IV SCH (08:37)
[2017-02-05] MEDS ORDERED: FLAGYL 500 MG/NS 500 MG/100 ML IVPB IV SCH (08:37)
[2017-02-05] MEDS: PROTONIX IV SCH (10:10)
[2017-02-05] MEDS: ELIQUIS PO SCH ×2 (10:10→21:24)
[2017-02-05] MEDS: CYMBALTA PO SCH (10:10)
[2017-02-05] MEDS: LYRICA PO SCH ×2 (10:10→21:23)
[2017-02-05] MEDS: SODIUM BICARBONATE PO SCH ×3 (10:10→21:24)
[2017-02-05] MEDS: CORDARONE PO SCH ×2 (10:10→21:23)
[2017-02-05] MEDS: FOLIC ACID PO SCH (10:11)
--- NOTE | 2017-02-05 10:49 | HISTORY AND PHYSICAL ---
CHIEF COMPLAINT: Nausea and vomiting for 24 hours prior to arriving. HISTORY OF PRESENTING ILLNESS: This is a 56-year-old, female who presents to [facility] ER with complaints of nausea vomiting for 24 hours. She has a history of lung cancer and had her last chemo 6 days ago. Was feeling in her normal state of health up until the past 24 hours. Workup in the ER showed a sodium of 131, a chloride 95, a BUN of 29 with a creatinine of 1.5. Plasma lactate of 2.3. White cells were normal at 10. Chest x-ray showed a vague infiltrate in the left mid and lower lung zone with a developing pneumonia that could not be excluded. So, she is being admitted for further evaluation and treatment. PAST MEDICAL HISTORY: 1. Lung cancer with chemotherapy ongoing. Last treatments 6 days ago. 2. COPD. 3. GERD. 4. Hypothyroidism. PAST SURGICAL HISTORY: Cholecystectomy. FAMILY HISTORY: Noncontributory. SOCIAL HISTORY: She currently lives with family. Denies any tobacco use, stating she quit 4 years ago and denies any ETOH or illicit drug use. ALLERGIES: She has no known drug allergies. HOME MEDICATIONS: She takes: 1. DuoNeb 4 times daily. 2. ProAir 1 inhalation p.r.n. every 4-6 hours. 3. Amiodarone 200 mg p.o. b.i.d. 4. Eliquis 5 mg p.o. b.i.d. 5. Mycelex troches 10 mg p.o. 5 times daily. 6. Cymbalta 30 mg p.o. daily. 7. Folic acid 1 mg p.o. daily. 8. Synthroid 100 mcg p.o. daily. 9. Amitiza 24 mcg daily p.r.n. 10. Methocarbamol. 750 mg p.o. b.i.d. p.r.n. 11. Zofran 8 mg p.o. t.i.d. p.r.n. 12. Lyrica 100 mg p.o. b.i.d. 13. Compazine 10 mg p.o. every 4-6 hours p.r.n. 14. Sodium bicarbonate 650 mg p.o. t.i.d. LABORATORY DATA: CBC: Showed a white blood cell count of 10, hemoglobin 11, hematocrit 32.3, platelets 230,000. Chem: Sodium 131, potassium 4.1, chloride 95, CO2 21, BUN of 29 with a creatinine of 1.5, glucose 137. Troponin: X3 sets were negative. Amylase: 77. Lipase: 19. Plasma lactate: 2.3. DIAGNOSTIC STUDIES: Chest x-ray: That showed a vague infiltrate in the left mid and lower lung zones with a developing pneumonia could not be excluded. EKG: Showed sinus tachycardia with occasional PVCs at 1:17. REVIEW OF SYSTEMS: She denied any fever, chills, blurred vision, dizziness, chest pain, coughing, shortness of breath. She is positive for some generalized abdominal pain, nausea and vomiting, and left arm weakness that has been present for the past 2 years. Denied any burning or hurting with urination. PHYSICAL EXAMINATION: VITAL SIGNS: On arrival showed a temperature of 98.5 degrees, a pulse of 151, respirations 20. Blood pressure was 96/84, saturating 91% on room air and currently her heart rate is down to 103. GENERAL: This is a 56-year-old, female who is lying in the bed, answers questions appropriately. HEENT: Normocephalic and atraumatic. Pupils are equal, round, reactive to light. The extraocular movements are intact. The oropharynx and nares are clear. NECK: Supple. LUNGS: Clear to auscultation bilaterally with equal lung expansion and chest wall movement. HEART: With regular rate and rhythm. No murmurs, rubs, or gallops. ABDOMEN: Soft, nontender, nondistended with bowel sounds present x4 quadrants. EXTREMITIES: No clubbing, cyanosis, or edema. There is left arm weakness that has been present for the past 2 years. 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 NEUROLOGICAL: But otherwise, the cranial nerves 2-12 appear grossly intact. ASSESSMENT: 1. Dehydration. 2. Acute kidney injury. 3. Left bed and lower lobe developing pneumonia. 4. Lung cancer. 5. Gastroesophageal reflux disease. OUR PLAN: 1. She was admitted to the medical unit at [facility]. 2. Placed on a neutropenic diet. 3. Placed on DuoNeb every 4 hours and every 2 hours p.r.n., Cipro 400 mg IV every 12 hours, Flagyl 500 IV every 8 hours, Dilaudid 1-2 mg IV every 3 hours p.r.n., Zofran 4 mg IV every 4 hours p.r.n., Protonix 40 mg IV daily, Phenergan 12.5 mg IV every 4 hours p.r.n. 4. Continue home medications as previously identified and we will check a CBC and BMP in the morning. This is DICK Galvin, dictating for Dr. Garcia. Dictated by DICK Galvin for Richard Garcia MD cc: MD Clare Sagastume CRNP Alexis R. Penot, MD
[2017-02-05] MEDS: MYCELEX TROCHE PO SCH ×5 (11:05→21:23)
[2017-02-05] MEDS: FLAGYL PO SCH ×2 (12:56→21:23)
[2017-02-05] MEDS: CIPRO PO SCH ×2 (12:56→21:24)
[2017-02-05] MEDS ORDERED: FLAGYL PO ONE (13:00)
[2017-02-05] MEDS ORDERED: CIPRO PO ONE (13:00)
[2017-02-05 15:52] LABS: HEMOGLOBIN 8.4 g/dL (12.0-16.0); MCH 31.1 PG (27-31); MCHC 33.6 g/dL (33-37); MCV 92.6 FL (81-99); MPV 10.6 FL (7.4-10.4); RBC 2.7 XMIL (4.2-5.4)
[2017-02-05 16:27] LABS: AGAP 10; BUN 15 mg/dL (8-22); CALCIUM 8.3 mg/dL (8.8-10.2); CHLORIDE 98 mmol/L (98-107); COSMO 264; POTASSIUM 4.3 mmol/L (3.5-5.1); SODIUM 131 mmol/L (136-145); TCO2 24 mmol/L (25-35)
--- NOTE | 2017-02-05 18:19 | PROGRESS NOTE ---
DATE: 02/05/2017 SUBJECTIVE: The patient states that she is feeling a little better today. She has no specific complaints. She has had no further vomiting and she has tolerated diet. OBJECTIVE: Vital Signs: Blood pressure is 115/66 with a heart rate of 108, respirations are 20, temperature is 98.7 degrees oral with O2 saturations of 98-99% on 2 L nasal cannula. Cardiovascular: Regular rate and rhythm S1, S2 appreciated. Pulmonary: Breath sounds are clear with no increased work of breathing noted. Gastrointestinal: Abdomen is soft, nontender, nondistended with bowel sounds in all 4 quadrants. Extremities: No clubbing, cyanosis, or edema. Calves are nontender and pulses are palpable x 4. Neurologic: She is alert and oriented x 3. LABS: WBC is 1.1 with a hemoglobin of 8.4, hematocrit 25, and platelets of 103. Sodium is 131, potassium 4.3, BUN 15, creatinine 0.9, with a glucose of 113. ASSESSMENT: 1. Dehydration. We will continue with rehydration. She has had no further vomiting thankfully. 2. Acute kidney injury. Creatinine is down to 0.9. We will continue with hydration and we will trend labs. We will watch any renal toxic medications. 3. Left lower lobe developing pneumonia. She does remain afebrile. We will continue with Cipro and Flagyl as she is improving. 4. Lung cancer. Aware. 5. Gastroesophageal reflux disease. Continue her Protonix and Zofran. We will trend labs in the morning. Dictated by DICK De La Cruz for Yung Chin MD cc: DICK De La Cruz MD
--- NOTE | 2017-02-05 20:41 | PROGRESS NOTE ---
DATE: 02/05/2017 ADDENDUM: Patient seen and examined. She notes that her nausea is getting better although she has not really had anything to eat or drink yet today. OBJECTIVE: She is pleasant to talk with. Vital signs are stable. Chest is clear. Abdomen is soft, nondistended, nontender. PLAN: We will continue her on IV fluids today. Will attempt to change Cipro and Flagyl to p.o. if she tolerates. Hopefully home in 1-2 days. cc: Yung Chin MD
[2017-02-05] MEDS: AMBIEN PO SCH (21:24)
[2017-02-05] MEDS: DILAUDID IV PRN (21:24)
[2017-02-06] MEDS: DUONEB (A & A) INH SCH ×4 (03:39→21:49)
[2017-02-06] MEDS: DILAUDID IV PRN ×3 (05:10→16:19)
[2017-02-06] MEDS: ZOFRAN IV PRN (05:11)
[2017-02-06] MEDS: SYNTHROID PO SCH ×2 (05:11→06:13)
[2017-02-06 06:30] LABS: POTASSIUM 4.6 mmol/L (3.5-5.1)
[2017-02-06 06:53] LABS: HEMATOCRIT 24.8 % (37.0-47.0); HEMOGLOBIN 8.2 g/dL (12.0-16.0); MCH 30.6 PG (27-31); MCHC 33.1 g/dL (33-37); MCV 92.5 FL (81-99); MPV 10.6 FL (7.4-10.4); RBC 2.68 XMIL (4.2-5.4)
[2017-02-06] MEDS: PROTONIX IV SCH (09:53)
[2017-02-06] MEDS: SODIUM CHLORIDE 0.9% INJ PRN (09:53)
[2017-02-06] MEDS: SODIUM BICARBONATE PO SCH ×3 (09:53→20:55)
[2017-02-06] MEDS: ELIQUIS PO SCH ×2 (09:54→20:55)
[2017-02-06] MEDS: CIPRO PO SCH ×2 (09:54→20:55)
[2017-02-06] MEDS: LYRICA PO SCH ×2 (09:54→20:55)
[2017-02-06] MEDS: CYMBALTA PO SCH (09:54)
[2017-02-06] MEDS: FOLIC ACID PO SCH (09:54)
[2017-02-06] MEDS: CORDARONE PO SCH ×2 (09:54→20:55)
[2017-02-06] MEDS: FLAGYL PO SCH ×2 (09:54→20:54)
[2017-02-06] MEDS: MYCELEX TROCHE PO SCH ×5 (09:55→20:56)
--- NOTE | 2017-02-06 17:30 | PROGRESS NOTE ---
DATE: 02/06/2017 SUBJECTIVE: The patient feels better. Still some nausea, no diarrhea. She is eating better. OBJECTIVE: Vital signs: Blood pressure 121/62, heart rate of 102, respiratory rate 22, temperature 99 degrees. Cardiovascular: Regular rate and rhythm. Pulmonary: Bilateral breath sounds. Clear to auscultation. GI: Soft, nontender, nondistended. Bowel sounds are positive. LABORATORY DATA: White count dropped to 0.55. It was actually 10, then went down to 1. Now it is 0.55. Hemoglobin and hematocrit of 8 and 24. Platelets of 105,000. Creatinine 1.1. PROBLEM LIST: 1. Dehydration. We will continue IV fluids and follow. 2. Acute kidney injury. This has resolved. 3. Left lower lobe pneumonia. She is on Cipro and Flagyl. 4. Lung cancer status post chemotherapy. Appears to be stable. 5. Neutropenia. We will dose with Neupogen and get a Hematology/Oncology opinion and follow. DISCHARGE: Stable. Hopefully discharge in next 1-2 days. cc: Richard Garcia MD
[2017-02-06] MEDS: GRANIX SUBQ SCH (17:58)
[2017-02-06] MEDS: AMBIEN PO SCH (20:58)
[2017-02-07] MEDS: DUONEB (A & A) INH SCH ×5 (03:37→21:20)
[2017-02-07] MEDS: DILAUDID IV PRN ×2 (04:38→09:29)
[2017-02-07] MEDS: SYNTHROID PO SCH (06:05)
[2017-02-07 06:58] LABS: CALCIUM 8.8 mg/dL (8.8-10.2); POTASSIUM 4.3 mmol/L (3.5-5.1)
[2017-02-07 07:19] LABS: MANUAL DIFF NEEDED? NO
[2017-02-07 07:27] LABS: EOS# 0.03 X1000 (0.0-0.7); EOS% 8.8 % (0.0-10.0); HEMATOCRIT 23.3 % (37.0-47.0); HEMOGLOBIN 7.8 g/dL (12.0-16.0); IMM GRAN# 0.02 X1000 (0.0-0.04); IMM GRAN% 5.9 % (0.0-0.5); LYMPH# 0.12 X1000 (1.2-3.4); LYMPH% 35.3 % (20.5-51.1); MCH 31.1 PG (27-31); MCHC 33.5 g/dL (33-37); MCV 92.8 FL (81-99); MONO% 29.4 % (1.7-9.3); MPV 11.3 FL (7.4-10.4); NEUT% 20.6 % (42.2-75.2); PLT 102 X1000 (130-400); RBC 2.51 XMIL (4.2-5.4)
[2017-02-07] MEDS: SODIUM CHLORIDE 0.9% INJ PRN (09:28)
[2017-02-07] MEDS: CYMBALTA PO SCH (09:28)
[2017-02-07] MEDS: PROTONIX IV SCH (09:28)
[2017-02-07] MEDS: FLAGYL PO SCH ×2 (09:28→20:54)
[2017-02-07] MEDS: LYRICA PO SCH ×2 (09:28→20:54)
[2017-02-07] MEDS: CIPRO PO SCH ×2 (09:29→20:55)
[2017-02-07] MEDS: SODIUM BICARBONATE PO SCH ×3 (09:29→20:54)
[2017-02-07] MEDS: FOLIC ACID PO SCH (09:29)
[2017-02-07] MEDS: ELIQUIS PO SCH ×2 (09:29→20:54)
[2017-02-07] MEDS: CORDARONE PO SCH ×2 (09:31→20:54)
[2017-02-07] MEDS: ZOFRAN IV PRN (09:34)
[2017-02-07] MEDS: MYCELEX TROCHE PO SCH ×5 (09:34→20:55)
[2017-02-07] MEDS ORDERED: CITRATE OF MAGNESIA PO ONE (11:43)
--- NOTE | 2017-02-07 16:20 | PROGRESS NOTE ---
DATE: 02/07/2017 SUBJECTIVE: Ms. Reina states that she does feel better today. She has some nausea although she states she feels like she is constipated. She has not had a bowel movement in quite a few days. OBJECTIVE: Vital Signs: Blood pressure is 150/80, with a heart rate of 110, respirations are 18, temperature is 98.6 degrees oral with O2 saturations of 96%-98% on 3 L nasal cannula. Cardiovascular: Regular rate and rhythm. S1, S2 appreciated. Pulmonary: Breath sounds are clear with no increased work of breathing noted. Gastrointestinal: Abdomen is soft, nontender, nondistended with bowel sounds in all 4 quadrants. LABS: WBC of 0.34, with hemoglobin of 7.8, hematocrit 23.3, and platelets of 102,000. Creatinine is 1.1. PROBLEM LIST: 1. Dehydration. We will continue with hydration. 2. Acute kidney injury. Resolved. 3. Left lower lobe pneumonia. We will continue Cipro and Flagyl. 4. Lung cancer status post chemotherapy. 5. Neutropenia. I did speak with Dr. Nabila Gr's nurse, updated on patient's status. They did state that according to her date of chemotherapy that this neutropenia is expected. Records were faxed to Dr. Gomez's office. They will be reviewed and if they have any further recommendations they will call. Dictated by DICK De La Cruz for Yung Chin MD cc: DICK De La Cruz MD
[2017-02-07] MEDS ORDERED: BENADRYL PO ONE (16:37)
[2017-02-07 18:11] LABS: HEMATOCRIT 23.3 % (37.0-47.0)
[2017-02-07] MEDS: GRANIX SUBQ SCH (18:11)
[2017-02-07] MEDS: AMBIEN PO SCH (20:54)
--- NOTE | 2017-02-07 21:18 | PROGRESS NOTE ---
DATE: 02/07/2017 SUBJECTIVE: Patient notes she is feeling better. Denies any nausea and vomiting. At the present time denies any abdominal pain, cough or congestion. OBJECTIVE: Vital Signs reviewed. Temp 99.6 degrees, pulse 114, respiratory 20, BP 137/77. General: Patient is awake and alert. She is currently in no respiratory distress. She is pleasant to talk with, lying in bed talking to her sister. HEENT: Normocephalic, atraumatic. MOY. Neck: Supple. CV: Regular rate. Chest: Relatively clear. Abdomen: Soft, obese, nondistended. Extremities: Moves all extremities. ASSESSMENT: 1. Dehydration resolved. 2. Acute kidney injury, resolved. 3. Nausea and vomiting, resolved. 4. Left lower lobe pneumonia, currently on Cipro and Flagyl and doing well. 5. Lung cancer. Currently receiving chemotherapy. 6. Neutropenia secondary to her chemotherapy. We did discuss with her oncologist and her leukopenia and neutropenia are to be expected over yesterday, today and tomorrow given her recent chemotherapy. PLAN: We will keep the patient on hospital today. We will discuss with oncology as to when to discharge. We will continue on antibiotics. Further orders as needed. cc: Yung Chin MD
[2017-02-08] MEDS ORDERED: BENADRYL PO ONE (00:35)
[2017-02-08] MEDS ORDERED: NS 500 ML IV SCH (00:56)
[2017-02-08] MEDS: DUONEB (A & A) INH SCH ×3 (03:56→15:30)
[2017-02-08] MEDS: SYNTHROID PO SCH (06:15)
[2017-02-08] MEDS ORDERED: PROTONIX PO SCH (07:00)
[2017-02-08] MEDS: LYRICA PO SCH (08:56)
[2017-02-08] MEDS: ELIQUIS PO SCH (08:56)
[2017-02-08] MEDS: SODIUM BICARBONATE PO SCH ×2 (08:56→15:01)
[2017-02-08] MEDS: CYMBALTA PO SCH (08:56)
[2017-02-08] MEDS: FLAGYL PO SCH (08:56)
[2017-02-08] MEDS: CIPRO PO SCH (08:56)
[2017-02-08] MEDS: MYCELEX TROCHE PO SCH ×4 (08:56→17:18)
[2017-02-08] MEDS: FOLIC ACID PO SCH (08:56)
[2017-02-08] MEDS: CORDARONE PO SCH (08:57)
[2017-02-08 09:18] LABS: HEMATOCRIT 24.9 % (37.0-47.0); HEMOGLOBIN 8.4 g/dL (12.0-16.0); MCH 30.7 PG (27-31); MCHC 33.7 g/dL (33-37); MCV 90.9 FL (81-99); MPV 10.9 FL (7.4-10.4); RBC 2.74 XMIL (4.2-5.4)
[2017-02-08 09:31] LABS: AGAP 9; ALBUMIN 2.5 g/dL (3.5-5.0); ALKALINE PHOSPHATASE 49 U/L (32-104); BUN 16 mg/dL (8-22); CALCIUM 8.9 mg/dL (8.8-10.2); CHLORIDE 94 mmol/L (98-107); COSMO 265; GOT 15 U/L (10-30); GPT 10 U/L (10-36); POTASSIUM 3.8 mmol/L (3.5-5.1); SODIUM 131 mmol/L (136-145); TCO2 28 mmol/L (25-35); TOTAL PROTEIN 6.5 g/dL (6.3-8.3)
[2017-02-08 15:35] VITALS: BP 136/60
[2017-02-08] MEDS ORDERED: COMPAZINE PO ONE (15:50)
[2017-02-08] MEDS: GRANIX SUBQ SCH (17:18)
--- NOTE | 2017-02-09 05:41 | PROGRESS NOTE ---
DATE: 02/08/2017 SUBJECTIVE: Patient notes she is feeling better. She is actually asking when she can go home. She denies any fevers, chills. Denies any cough or congestion. PHYSICAL EXAMINATION: Vital signs: Temp 99.2, pulse 90, respiratory 18, BP 136/80. General: Patient is awake, alert. She is currently in no respiratory distress. Pleasant to talk with. Neck: Supple. Cardiovascular: Regular rate. Chest: Clear. Abdomen: Soft. ASSESSMENT: 1. Dehydration. 2. Acute kidney injury, resolved. 3. Left lower lobe pneumonia, on Cipro and Flagyl, doing well. PLAN: We will continue patient in the hospital today secondary to her recent neutropenia. We will attempt to discuss with Oncology further plans. We will recheck her labs in the a.m. If they are stable hopefully can be discharged home. In. cc: Yung Chin MD
--- NOTE | 2017-02-09 11:57 | DISCHARGE SUMMARY ---
ADMISSION DATE: 02/03/2017 DISCHARGE DATE: 02/08/2017 DIAGNOSES: 1. Dehydration, resolved. 2. Acute kidney injury secondary to #1, as well as recent chemotherapy. 3. Left lower lobe pneumonia. 4. Lung cancer. 5. Chronic obstructive pulmonary disease. 6. Hypothyroid. HOSPITAL COURSE: Ms. Reina presented to the emergency room, and was found to be dehydrated, having nausea and vomiting for 24 hours as well as having a little to no appetite over the 3 days prior, as she had received chemo earlier in the week. She was given IV normal saline bolus in the emergency room and received gentle hydration. After blood cultures are obtained, she was given Cipro and Flagyl for antibiotic coverage as well as receiving DuoNeb q.4 hours and q.2 hours p.r.n. incentive spirometry. She did improve having no further vomiting and diarrhea. She was able to eat a regular diet with no difficulty. Her T-max during the hospitalization, was 99.7. She have a white count of 10 on admission. This did steadily decrease going down to 0.34 on February 07. It was back up to 1.33 today prior to discharge. Creatinine was 1.5 on admission. After hydration, she is 0.9. PHYSICAL EXAMINATION: Cardiovascular: Regular rate and rhythm. S1 and S2 appreciated. Pulmonary: Breath sounds are relatively clear. Chest rises and falls symmetrically with respiration. No increased work of breathing noted. Gastrointestinal: Abdomen is soft, nontender, nondistended with bowel sounds in all 4 quadrants. Neurologic: She is alert and oriented. DISCHARGE MEDICATIONS: Ambien 10 mg at bedtime, sodium bicarbonate 650 p.o. t.i.d. at 9, 3, and 9, Compazine 10 mg p.o. q.4 hours p.r.n., Lyrica 100 mg p.o. b.i.d., Zofran 8 mg p.o. t.i.d. p.r.n., Amitiza 24 mcg daily as needed, levothyroxine 100 mcg daily, folic acid 1 mg daily, Cymbalta 30 mg daily, Mycelex troches 10 mg troches 5 times a day. She is to hold in her mouth until dissolved, Eliquis 5 mg p.o. b.i.d., Cordarone 200 mg p.o. b.i.d., DuoNeb 4 times a day, methocarbamol 750 p.o. b.i.d., Flagyl 500 mg p.o. b.i.d. for 10 days, and Cipro 250 p.o. b.i.d. for 10 days. FOLLOWUP: She is to call Dr. Gomez's office today or tomorrow, schedule appointment for next week. I did call and speak to Betty, Dr. Gomez's nurse. She was updated on hospitalization. We did fax the patient's hospital data. This was reviewed with the physician that is covering for Dr. Gomez. He did recommend that she be transferred 1 unit of packed cells. This was given yesterday, stating that they a hemoglobin of 8. He also recommended that she return next week for her next chemo treatment. He also stated that Neulasta will be added hopefully to avoid hospitalization. CONDITION ON DISCHARGE: She is being discharged home in stable condition with family members. TIME SPENT: This is a greater than 30 minute discharge. Dictated by DICK De La Cruz for Yung Chin MD cc: DICK De La Cruz MD
--- NOTE | 2017-02-19 14:56 | PROVIDER DOCUMENTATION ---
This chart was entered by Jennifer Hernandez Scribe, acting as scribe for Sigifredo Overton DO. HPI-General Adult - General Chief Complaint: Nausea/Vomiting Stated Complaint: THROWING UP ALL DAY Time Seen by Provider: 02/03/17 19:41 Source: patient Allergies/Adverse Reactions: Patient Allergies Allergy/AdvReac Type Severity Reaction Status Date / Time No Known Allergies Allergy Verified 02/03/17 21:07 Home Medications: Home Medication List Medication Instructions Recorded Confirmed Last Taken Type Pregabalin [Lyrica] 100 mg PO BID 12/06/14 02/03/17 04/15/15 09:00 History 100mg Albuterol Sulfate [Proair Hfa] 1 gm INH Q4-6H PRN PRN 10/15/16 02/03/17 Unknown History Amiodarone [Cordarone] 200 mg PO BID 10/15/16 02/03/17 Unknown History Apixaban [Eliquis] 5 mg PO BID 10/15/16 02/03/17 Unknown History Duloxetine [Cymbalta] 30 mg PO DAILY 10/15/16 02/03/17 Unknown History Folic Acid 1 mg PO DAILY 10/15/16 02/03/17 Unknown History Levothyroxine Sodium 100 mcg PO DAILY@0700 10/15/16 02/03/17 Unknown History Lubiprostone [Amitiza] 24 mcg PO DAILY PRN PRN 10/15/16 02/03/17 Unknown History Ondansetron [Zofran] 8 mg PO TID PRN PRN 10/15/16 02/03/17 Unknown History Prochlorperazine [Compazine] 10 mg PO Q4-6H PRN PRN 10/15/16 02/03/17 Unknown History Sodium Bicarbonate 650 mg PO TID@0900,1500,2100 10/15/16 02/03/17 Unknown History Albuterol 2.5MG/Ipratrop 0.5MG 3 ml INH [id number] #120 neb 10/18/16 02/03/17 Unknown Rx [Duoneb (A & A)] Clotrimazole [Mycelex Saul] 10 mg PO 5XDAY #30 saul 10/18/16 02/03/17 Unknown Rx Zolpidem Tartrate 10 mg PO QHS 02/04/17 02/04/17 Unknown History Ciprofloxacin [Cipro] 500 mg PO BID #20 tablet 02/08/17 Unknown Rx Methocarbamol 750 mg PO BID PRN PRN #60 tablet 02/08/17 Unknown Rx Metronidazole [Flagyl] 500 mg PO BID #20 tablet 02/08/17 Unknown Rx - History of Present Illness -Gen Adult Nature of Presenting Problems: 56 Y/O F present to ER with the complain of N/V today. pt states that she has Hx of lung cancer and had her last chemo on X6 day. pt states that she is slight SOB. pt has hx of COPD. Location of Pain/Injury: reports: none Pain Radiation: reports: no radiation Quality of Pain: reports: none Severity: reports: moderate Onset/Duration: reports: this morning Timing: reports: still present Context/Activities at Onset: reports: none Modifying Factors: improves with: nothing Associated Symptoms: reports: nausea, vomiting Similar Symptoms Previously?: No Recently seen or treated by another doctor?: No Review of Systems - Adult - REVIEW OF SYSTEMS - ADULT Constitutional: reports: no symptoms reported Eyes: reports: no symptoms reported Ears, Nose, Mouth & Throat: reports: no symptoms reported Cardiovascular: denies: chest pain, palpitations Respiratory: reports: shortness of breath (slight). denies: cough Gastrointestinal: reports: nausea, vomiting. denies: abdominal pain, diarrhea Genitourinary: reports: no symptoms reported Musculoskeletal: reports: no symptoms reported Integumentary: reports: no symptoms reported Neurological: reports: no symptoms reported Psychiatric: reports: no symptoms reported Endocrine: reports: no symptoms reported Hematologic/Lymphatic: reports: no symptoms reported Allergic/Immunologic: reports: no symptoms reported All Other Systems: Reviewed and Negative Past History - Adult - PAST MEDICAL HISTORY-ADULT Review of Records: reports: Old Records Reviewed, Nursing Assessment Review Major Childhood Illnesses: reports: denies history Cardiovascular: reports: denies history Respiratory: reports: denies history Gastrointestinal: reports: GERD Obstetrical/Gynecological: reports: denies history Genitourinary: reports: denies history Musculoskeletal: reports: denies history Neurological: reports: denies history Psychiatric: reports: depression Endocrine/Immune: reports: thyroid disorder Other Conditions: reports: denies history Additional History: Chronic back pain; Sepsis; Neuropathy - PRIOR SURGERIES/PROCEDURES Surgical/Procedure History: reports: cholecystectomy - PRIOR HOSPITALIZATIONS Prior Hospitalizations: reports: none - IMMUNIZATION STATUS Childhood Immunizations: See Nurse Assessment Flu Vaccine: See Nurse Assessment - FAMILY HISTORY Family History: reviewed, not pertinent Physical Exam-General - PHYSICAL EXAM-ADULT Initial Vital Signs Reviewed: Yes - CONSTITUTIONAL General Appearance: appears well, alert - EYES Eyes: PERRL/EOMI, pink conjunctivae - HEAD, EARS, NOSE, MOUTH & THROAT HENMT: normocephalic/atraumatic, moist mucous membranes, normal ENT inspection - NECK Neck: non-tender, full range of motion, supple - RESPIRATORY Respiratory: chest non-tender, wheezing (bilat in lower lobes). negative: crackles, rales - CARDIOVASCULAR Cardiovascular: no edema, tachycardia. negative: diastolic murmur, systolic murmur - GASTROINTESTINAL (ABDOMEN) Abdominal Exam: non tender, soft. negative: distended, guarding - MUSCULOSKELETAL Back Exam: normal inspection, no CVA tenderness, no vertebral tenderness Extremity: normal inspection. negative: swelling, tenderness - SKIN Integumentary: normal color, normal turgor, warm/dry - NEUROLOGIC Neurologic: grossly normal, no motor/sensory deficits - PSYCHIATRIC Psych/Mental Status: normal mood/affect, normal thought content, normal thought process, oriented x 3 Progress - PLAN OF CARE/RESULTS Progress/Plan/Lab Results: Vital Signs - 8 hr 02/03/17 19:29 02/03/17 20:05 02/03/17 20:25 Temperature 98.5 F Pulse Rate 151 H 140 H 142 H Respiratory Rate 20 25 H 26 H Blood Pressure 96/84 88/55 O2 Sat by Pulse Oximetry 91 L 92 L 92 L 02/03/17 20:35 02/03/17 20:44 02/03/17 20:59 Temperature Pulse Rate 139 H 137 H 134 H Respiratory Rate 26 H 24 Blood Pressure 94/66 100/60 93/54 O2 Sat by Pulse Oximetry 91 L 92 L 93 L Laboratory Results - last 24 hr 02/03/17 02/03/17 02/03/17 20:00 20:00 20:00 WBC RBC Hgb Hct MCV MCH MCHC RDW Std Deviation Plt Count MPV Immature Gran % (Auto) Neut % (Auto) Lymph % (Auto) [place] % (Auto) Eos % (Auto) Baso % (Auto) Immature Gran # (Auto) Neut # (Auto) Lymph # (Auto) [place] # (Auto) Eos # (Auto) Baso # (Auto) Sodium 131 L Potassium 4.1 Chloride 95 L Carbon Dioxide 21 L Anion Gap 14 BUN 29 H Creatinine 1.5 H Estimated GFR/1.73 m2 36 BUN/Creatinine Ratio 19 Glucose 137 H Calculated Osmolality 271 Calcium 9.0 Total Bilirubin 0.80 AST 10 ALT 8 L Alkaline Phosphatase 62 Troponin T < 0.010 Cod-S-Thtbemwkvov Pept 214 Total Protein 7.5 Albumin 3.5 Globulin 4.0 Albumin/Globulin Ratio 1.0 Amylase 77 Lipase 19 Plasma Lactate 02/03/17 02/03/17 20:00 20:12 WBC 10.00 RBC 3.50 L Hgb 11.0 L Hct 32.3 L MCV 92.3 MCH 31.4 H MCHC 34.1 RDW Std Deviation 14.1 Plt Count 230 MPV 10.8 H Immature Gran % (Auto) 1.0 H Neut % (Auto) 96.2 H Lymph % (Auto) 2.1 L [place] % (Auto) 0.5 L Eos % (Auto) 0.1 Baso % (Auto) 0.1 Immature Gran # (Auto) 0.10 H Neut # (Auto) 9.62 H Lymph # (Auto) 0.21 L [place] # (Auto) 0.05 L Eos # (Auto) 0.01 Baso # (Auto) 0.01 Sodium Potassium Chloride Carbon Dioxide Anion Gap BUN Creatinine Estimated GFR/1.73 m2 BUN/Creatinine Ratio Glucose Calculated Osmolality Calcium Total Bilirubin AST ALT Alkaline Phosphatase Troponin T [id number] Pept Total Protein Albumin Globulin Albumin/Globulin Ratio Amylase Lipase Plasma Lactate 2.3 H Orders Category Date Time Status Nursing- Obtain EKG once Care 02/03/17 19:50 Active CHEST-1 VIEW [RAD] Stat Exams 02/03/17 19:50 Taken AMYLASE [CHEM] Stat Lab 02/03/17 20:00 Completed CBC WITH DIFF [HEME] Stat Lab 02/03/17 20:00 Results COMPREHENSIVE METABOLIC PANEL [CHEM] Stat Lab 02/03/17 20:00 Completed LACTATE, PLASMA [CHEM] Stat Lab 02/03/17 20:12 Completed LIPASE [CHEM] Stat Lab 02/03/17 20:00 Completed PRO B-NATRIURETIC PEPTIDE Stat Lab 02/03/17 20:00 Completed TROPONIN T Stat Lab 02/03/17 20:[address] [URINALYSIS] Stat Lab 02/03/17 19:50 Ordered 0.9% Sodium Chloride Inj [Ns] 1,000 ml Med 02/03/17 19:56 Discontinued IV 999 mls/hr Albuterol 2.5MG/Ipratrop 0.5MG [Duoneb (A & A)] Med 02/03/17 19:55 Discontinued 3 ml INH NOW ONE Promethazine [Phenergan] Med 02/03/17 19:55 Discontinued 25 mg IV NOW ONE Sodium Chloride 0.9% Med 02/03/17 19:55 Discontinued 10 ml INJ NOW ONE Aerosol Treatments Routine Oth 02/03/17 19:55 Active Aerosol Treatments Stat Oth 02/03/17 19:55 Active EKG [EKG] Stat Ther 02/03/17 19:50 Draft Result Diagrams: 02/08/17 08:56 02/08/17 08:56 - EKG 1 Time of EKG reading by physician:: 20:16 EKG Read and Signed by:: Sigifredo Overton EKG Interpretation (*Must complete 3 of following elements*): Abnormal Rate: 141 Rhythm: sinus tachycardia Comments: abnormal ECG - XRAY 1 XRAY: Bilateral XRAY Study: Chest Impression: Abnormal, See EMR Report - CONSULTS/PCP/HOSPITALIST Notification #1 *Consult/PCP/Hospitalist*: Dr. Garcia Time Discussed: 21:31 Reason/Comments: discussed about pt Consult Disposition: Admit Departure - Departure Date of Disposition Decision: 02/03/17 Time of Disposition Decision: 18:00 DIAGNOSIS: Vomitings, Pneumonia, Lung cancer Disposition: ADMITTED INPATIENT 09 Certified Medical Emergency: Emergent Condition: Fair - Critical Care Note This patient required my direct & personal management of CC.: No Attestation - Physician/ DALE Attestation Patient care was provided by Advanced Practice Provider:: No The physician spent face to face time with patient:: Yes Advanced Practice Provider documentation review:: Supervising physician onsite and consulted in the evaluation and care of this patient. The physician did have a face to face encounter with the patient. This chart was documented by the indicated scribe, (Jennifer Hernandez Scribe) and accurately reflects the services I performed and decisions made by me, Sigifredo Overton DO, as attested by the provider's signature.
== END 2017-02-08 18:15 | disposition home health service (06) ==
LOC: P.ED 19:25 → P.MEDSURG 22:23 → SUATTDRO 22:23
PROVIDERS: ATTEND Family Medicine